=== PATIENT | female | born 1995 | race Hispanic/Latino ===

== ENCOUNTER 2018-03-02 16:32 | Emergency (ER) | payer OTHER ==
--- NOTE | 2018-03-02 17:46 | ER ---
Nurse's Notes [facility] Name: Samira Boston Age: 22 yrs Sex: Female : 1995 Arrival Date: 03/02/2018 Time: 16:33 Bed 20 Private MD: Diagnosis: Post LEEP pain, fatigue, malaise Presentation: 03/02 16:46 Presenting complaint: Patient states: LEEP 13 days ago. Reports clear malodorous aj discharge with intermittent bleeding. Seen in Kadiyala's office today and told she has an infection. ABX called in, patient has not picked up RX yet. Transition of care: patient was not received from another setting of care. Onset of symptoms was February 19, 2018. Care prior to arrival: None. 16:46 Method Of Arrival: Ambulatory aj 16:46 Acuity: SHANELL 3 aj Triage Assessment: 16:49 General: Appears in no apparent distress. comfortable, Behavior is calm, cooperative, aj appropriate for age. Pain: Complains of pain in pelvis Pain currently is 9 out of 10 on a pain scale. Neuro: Level of Consciousness is awake, alert, obeys commands, Oriented to person, place, time, situation. Respiratory: Airway is patent Respiratory effort is even, unlabored, Respiratory pattern is regular, symmetrical. : Reports discharge, bloody, malodorous. Derm: Skin is intact, is healthy with good turgor, Skin is pink, warm \T\ dry. normal. 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 - Social history:: Smoking status: Patient/guardian denies using tobacco. Screenin:31 Abuse screen: Denies threats or abuse. Denies injuries from another. Nutritional ss screening: No deficits noted. Tuberculosis screening: Never had TB. Fall Risk None identified. Assessment: 17:31 General: Appears in no apparent distress. comfortable, Behavior is calm, cooperative, ss Denies fever, feeling ill, fatigue, chills. Pain: Complains of pain in pelvis Pain currently is 9 out of 10 on a pain scale. Quality of pain is described as aching, tender, Is continuous. Neuro: Level of Consciousness is awake, alert, obeys commands, Oriented to person, place, time, situation. Cardiovascular: Capillary refill < 3 seconds is brisk in bilateral fingers. Respiratory: Airway is patent Respiratory effort is even, unlabored, Respiratory pattern is regular, symmetrical. GI: Patient currently denies diarrhea, nausea, vomiting. : Reports discharge, from vagina that is bloody, malodorous. EENT: Nares are clear. Derm: Skin is intact, is healthy with good turgor, Skin is dry, Skin is pink, warm \T\ dry. normal. Musculoskeletal: Circulation, motion, and sensation intact. Range of motion: intact in all extremities. Vital Signs: 16:49 BP 118 / 91; Pulse 83; Resp 17; Temp 98.2; Pulse Ox 100% on R/A; Weight 52.16 kg; aj Height 5 ft. 2 in. (157.48 cm); Pain 9/10; 16:49 Body Mass Index 21.03 (52.16 kg, 157.48 cm) aj ED Course: 16:33 Patient arrived in ED. as 16:48 Triage completed. aj 16:49 Arm band placed on right wrist. Patient placed in an exam room. aj 17:00 [facility]endiz [facility]C [facility]. snw 17:00 Cesar Andres MD is Attending Physician. snw 17:15 Ena Britt, KJ is Primary Nurse. ss 17:31 Patient has correct armband on for positive identification. Bed in low position. Call ss light in reach. 17:44 Urine collected: clean catch specimen, clear. dh3 17:45 Deanna Reyes MD is Referral Physician. snw 18:18 No provider procedures requiring assistance completed. Patient did not have IV access ss during this emergency room visit. Administered Medications: 17:52 Drug: Zofran 4 mg Route: PO; ss 18:15 Follow up: Response: No adverse reaction ss 17:55 Drug: TORadol 60 mg Route: IM; Site: left gluteus; ss 18:15 Follow up: Response: No adverse reaction ss 17:55 Drug: [place] 5 mg-325 mg 1 tabs Route: PO; ss 18:15 Follow up: Response: No adverse reaction; Medication administered at discharge. ss 17:55 Drug: Flagyl 500 mg Route: PO; ss 18:15 Follow up: Response: No adverse reaction Outcome: 17:46 Discharge ordered by . ashok 18:18 Discharged to home ambulatory, with significant other. ss 18:18 Condition: good 18:18 Discharge instructions given to patient, family, Instructed on discharge instructions, follow up and referral plans. medication usage, Demonstrated understanding of instructions, follow-up care, medications, Prescriptions given X 3. 18:19 Patient left the ED. ss Signatures: Sherry Del Valle, RN RN Valery Pathak, ELECTRICAL CALIBRATOR-C ELECTRICAL CALIBRATOR-Csnw Ivy Zelaya Shelby, KJ RN Kristina Mathews formerly [facility]
--- NOTE | 2018-03-02 17:46 | EDPHYS ---
Physician Documentation [facility] Name: Samira Boston Age: 22 yrs Sex: Female : 1995 Arrival Date: 03/02/2018 Time: 16:33 Bed 20 Private MD: ED Physician Cesar Andres HPI: 03/02 17:30 This 22 yrs old Female presents to ER via Ambulatory with complaints of Pelvic snw Pain. 17:30 The patient presents with pelvic pain, s/p LEEP procedure 13 days ago. Onset: The snw symptoms/episode began/occurred gradually, and became worse. Modifying factors: The symptoms are alleviated by nothing, the symptoms are aggravated by movement, pressure. Associated signs and symptoms: Pertinent positives: cramping, vaginal discharge, cear, foul odor. Severity of symptoms: At their worst the symptoms were moderate, severe. The patient has not experienced similar symptoms in the past. The patient has been recently seen by a physician: the patient's primary care provider, with similar presenting complaints, was given a prescription for antibiotics, and was referred to a specialist. 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 - Social history:: Smoking status: Patient/guardian denies using tobacco. ROS: 17:29 Constitutional: Negative for fever, chills, and weight loss, + "hot flashes, nausea, snw headache, feeling weak in the legs" Eyes: Negative for injury, pain, redness, and discharge, ENT: Negative for injury, pain, and discharge, Neck: Negative for injury, pain, and swelling, Cardiovascular: Negative for chest pain, palpitations, and edema, Respiratory: Negative for shortness of breath, cough, wheezing, and pleuritic chest pain, Abdomen/GI: Negative for abdominal pain, nausea, vomiting, diarrhea, and constipation, Back: Negative for injury and pain, MS/Extremity: Negative for injury and deformity, Skin: Negative for injury, rash, and discoloration, Neuro: Negative for headache, weakness, numbness, tingling, and seizure. Exam: 17:27 Constitutional: This is a well developed, well nourished patient who is awake, alert, snw and in no acute distress. Head/Face: Normocephalic, atraumatic. Eyes: Pupils equal round and reactive to light, extra-ocular motions intact. Lids and lashes normal. Conjunctiva and sclera are non-icteric and not injected. Cornea within normal limits. Periorbital areas with no swelling, redness, or edema. ENT: Nares patent. No nasal discharge, no septal abnormalities noted. Tympanic membranes are normal and external auditory canals are clear. Oropharynx with no redness, swelling, or masses, exudates, or evidence of obstruction, uvula midline. Mucous membranes moist. Neck: Trachea midline, no thyromegaly or masses palpated, and no cervical lymphadenopathy. Supple, full range of motion without nuchal rigidity, or vertebral point tenderness. No Meningismus. Chest/axilla: Normal chest wall appearance and motion. Nontender with no deformity. No lesions are appreciated. Cardiovascular: Regular rate and rhythm with a normal S1 and S2. No gallops, murmurs, or rubs. Normal PMI, no JVD. No pulse deficits. Respiratory: Lungs have equal breath sounds bilaterally, clear to auscultation and percussion. No rales, rhonchi or wheezes noted. No increased work of breathing, no retractions or nasal flaring. Abdomen/GI: Soft, mild tenderness to suprapubic area, with normal bowel sounds. No distension or tympany. No guarding or rebound. No evidence of tenderness throughout. Back: No spinal tenderness. No costovertebral tenderness. Full range of motion. Skin: Warm, dry with normal turgor. Normal color with no rashes, no lesions, and no evidence of cellulitis. MS/ Extremity: Pulses equal, no cyanosis. Neurovascular intact. Full, normal range of motion. Neuro: Awake and alert, GCS 15, oriented to person, place, time, and situation. Cranial nerves II-XII grossly intact. Motor strength 5/5 in all extremities. Sensory grossly intact. Cerebellar exam normal. Normal gait. Vital Signs: 16:49 BP 118 / 91; Pulse 83; Resp 17; Temp 98.2; Pulse Ox 100% on R/A; Weight 52.16 kg; aj Height 5 ft. 2 in. (157.48 cm); Pain 9/10; 16:49 Body Mass Index 21.03 (52.16 kg, 157.48 cm) aj MDM: 17:07 Patient medically screened. snw 18:12 Data reviewed: vital signs, nurses notes. Data interpreted: Pulse oximetry: on room air snw is 100 %. Counseling: I had a detailed discussion with the patient and/or guardian regarding: the historical points, exam findings, and any diagnostic results supporting the discharge/admit diagnosis, the presence of at least one elevated blood pressure reading (>120/80) during this emergency department visit, the need for outpatient follow up, for definitive care, to return to the emergency department if symptoms worsen or persist or if there are any questions or concerns that arise at home. Special discussion: Based on the history and exam findings, there is no indication for further emergent testing or inpatient evaluation. I discussed with the patient/guardian the need to see the OB Gyne specialist for further evaluation of the symptoms. 03/02 17:01 Order name: Urine Culture snw 03/02 17:01 Order name: Urine Microscopic Only snw 03/02 17:01 Order name: Urine Culture EDMS 03/02 17:01 Order name: Urine Microscopic Only; Complete Time: 18:12 EDMS 03/02 17:45 Order name: Urine Dipstick--Ancillary (enter results); Complete Time: 17:55 mw2 03/02 17:45 Order name: Urine --Ancillary (enter results); Complete Time: 17:55 mw2 03/02 17:01 Order name: Urine Dipstick-Ancillary (obtain specimen); Complete Time: 17:45 snw Administered Medications: 17:52 Drug: Zofran 4 mg Route: PO; ss 18:15 Follow up: Response: No adverse reaction ss 17:55 Drug: TORadol 60 mg Route: IM; Site: left gluteus; ss 18:15 Follow up: Response: No adverse reaction ss 17:55 Drug: [place] 5 mg-325 mg 1 tabs Route: PO; ss 18:15 Follow up: Response: No adverse reaction; Medication administered at discharge. ss 17:55 Drug: Flagyl 500 mg Route: PO; ss 18:15 Follow up: Response: No adverse reaction ss Disposition: 03/03 08:11 Co-signature as Attending Physician, Cesar Andres MD I agree with the assessment and wa plan of care. Disposition: 03/02/18 17:46 Discharged to Home. Impression: Post LEEP pain, fatigue, malaise. - Condition is Stable. - Discharge Instructions: Cervicitis, [id number], Endocervical Curettage, Care After. - Prescriptions for Flagyl 500 mg Oral Tablet - take 1 tablet by ORAL route every 12 hours for 7 days; 14 tablet. Diclofenac Sodium 75 mg Oral Tablet Sustained Release - take 1 tablet by ORAL route 2 times per day; 30 tablet. - Medication Reconciliation Form, Thank You Letter, Antibiotic Education, Prescription Opioid Use form. - Family Work Release (03/02/18 20:15). em1 - Follow up: Deanna Reyse MD; When: Tomorrow; Reason: Recheck today's complaints, Continuance of care, Re-evaluation by your physician. Signatures: Dispatcher [employer] Sherry Garcia RN Valery Benavides, APPLICATIONS SALES REPRESENTATIVE-C APPLICATIONS SALES REPRESENTATIVE-Ziw Ena Britt RN RN ss App[place], William, MD MD wa Martinez, Eric em1
[2018-03-02] MEDS ORDERED: metroNIDAZOLE 500 MG TABLET ONE (17:47)
[2018-03-02] MEDS ORDERED: ONDANSETRON 4 MG (ODT) TAB ONE (17:48)
[2018-03-02] MEDS ORDERED: KETOROLAC 30 MG/ML INJ ONE (17:48)
[2018-03-02] MEDS ORDERED: HYDROCODONE/APAP 5/325 MG TAB ONE (17:48)
[2018-03-02 17:50] LABS: Urine Blood 3+ (NEG); Urine Glucose NEGATIVE (NEG); Urine Protein NEGATIVE (NEG)
[2018-03-02 18:10] LABS: Urine Bacteria 20-50 /HPF (<20); Urine Culture Reflex Order NOT NEEDED
== END 2018-03-02 18:19 | disposition home or self-care (01) ==
LOC: ER 16:32
DX: R53.83 Other fatigue (principal); R53.81 Other malaise
CPT/HCPCS: 81003; 81015; 81025; 87086; 87088; 96372; 99283

== ENCOUNTER 2018-08-17 16:58 | Emergency (ER) | payer OTHER ==
[2018-08-17] MEDS ORDERED: ONDANSETRON 4 MG/2 ML VIAL ONE (17:38)
[2018-08-17] MEDS ORDERED: MORPHINE 4 MG/ML SYR ONE (17:38)
[2018-08-17 17:52] LABS: Absolute Lymphocytes (CBC) 2.4 K/uL (0.7-4.9); Absolute Monocytes 0.4 K/uL (0.1-1.3); Absolute Neutrophil 5.5 K/uL (1.8-8.0); Basophils % 0.6 % (0-1.3); Eosinophils % 2.7 % (0-4.4); Hematocrit 37.7 % (36.0-45.0); Lymphocytes % 28.1 % (15.3-44.8); MCH 30.8 pg (27.0-35.0); MCV 92.1 fL (80-100); MPV 9.1 fL (7.6-11.3); Monocytes % 5.1 % (3.3-12.3)
[2018-08-17 17:55] LABS: Urine Blood NEGATIVE (NEG); Urine Glucose NEGATIVE (NEG); Urine Protein TRACE (NEG); Urine Specific Gravity 1.015 (1.005-1.030); Urine pH 8.5 (5.0-7.0)
[2018-08-17 18:10] LABS: ALT/SGPT 22 U/L (12-78); AST/SGOT 16 U/L (15-37); Albumin 3.6 g/dL (3.4-5.0); Alkaline Phosphatase 67 U/L (45-117); BUN Blood Urea Nitrogen 20 mg/dL (7-18); Bicarbonate 29 mmol/L (21-32); Bilirubin Direct < 0.1 mg/dL (0-0.2); Bilirubin Total 0.2 mg/dL (0.2-1.0); Glucose Level 90 mg/dL (74-106); Lipase 158 U/L (73-393); Potassium 3.9 mmol/L (3.5-5.1); Protein, Total 7.1 g/dL (6.4-8.2); Sodium Level 141 mmol/L (136-145)
--- NOTE | 2018-08-17 18:38 | EDPHYS ---
Physician Documentation [facility] Name: Samira Boston Age: 23 yrs Sex: Female : 1995 Arrival Date: 08/17/2018 Time: 16:59 Bed 16 Private MD: None, None ED Physician Oh Colindres HPI: 08/17 17:15 This 23 yrs old Female presents to ER via Ambulatory with complaints of cp Abdominal Pain. 17:15 The patient presents with abdominal pain right lower quadrant. Onset: The cp symptoms/episode began/occurred 3 day(s) ago. 17:15 Associated signs and symptoms: Pertinent positives: vaginal discharge, Pertinent cp negatives: nausea, vomiting, and diarrhea, constipation, fever, hematuria. 17:15 Patient reports history of right ovarian cyst and reports pain is similar to when cp diagnosed with cyst. Patient reports pain with intercourse. 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 - Social history:: Smoking status: Patient/guardian denies using tobacco. - Ebola Screening: : Patient denies travel to an Ebola-affected area in the 21 days before illness onset. ROS: 17:25 Constitutional: Negative for body aches, chills, fever, poor PO intake. cp 17:25 Eyes: Negative for injury, pain, redness, and discharge. cp 17:25 ENT: Negative for drainage from ear(s), ear pain, sore throat, difficulty swallowing, difficulty handling secretions. 17:25 Cardiovascular: Negative for chest pain, edema, palpitations. 17:25 Respiratory: Negative for cough, shortness of breath, wheezing. 17:25 Abdomen/GI: Positive for abdominal pain, Negative for nausea, vomiting, and diarrhea, constipation, anorexia, dysphagia, black/tarry stool, rectal bleeding. 17:25 Back: Negative for injury or acute deformity, pain at rest, pain with movement. 17:25 : Negative for urinary symptoms, vaginal bleeding, vaginal discharge. 17:25 Skin: Negative for cellulitis, rash. 17:25 Neuro: Negative for altered mental status, headache, weakness. 17:25 All other systems are negative. Exam: 17:27 Head/Face: Normocephalic, atraumatic. cp 17:27 Constitutional: The patient appears in no acute distress, alert, awake, non-toxic, well developed, well nourished. 17:27 Eyes: Periorbital structures: appear normal, Conjunctiva: normal, no exudate, no injection, Sclera: no appreciated abnormality, Lids and lashes: appear normal, bilaterally. 17:27 ENT: External ear(s): are unremarkable, Nose: is normal, Mouth: Lips: moist, Oral mucosa: pink and intact, moist, Posterior pharynx: is normal, airway is patent, no erythema, no exudate. 17:27 Neck: ROM/movement: is normal, is supple, without pain, no range of motions limitations, no nuchal rigidity. 17:27 Chest/axilla: Inspection: normal, Palpation: is normal, no crepitus, no tenderness. 17:27 Cardiovascular: Rate: normal, Rhythm: regular. 17:27 Respiratory: the patient does not display signs of respiratory distress, Respirations: normal, no use of accessory muscles, no retractions, no splinting, no tachypnea, labored breathing, is not present, Breath sounds: are clear throughout, no decreased breath sounds, no stridor, no wheezing. 17:27 Abdomen/GI: Inspection: abdomen appears normal, Bowel sounds: active, all quadrants, Palpation: soft, in all quadrants, moderate abdominal tenderness, in the right lower quadrant and right adnexa, rebound tenderness, is not appreciated, involuntary guarding, is not appreciated. 17:27 Back: CVA tenderness, is absent. 17:27 Skin: cellulitis, is not appreciated, no rash present. 18:25 : Pelvic Exam: External exam: is normal, Speculum exam: mild bleeding, cervicitis cp present, os that is closed, bimanual exam reveals cervical motion tenderness, uterine tenderness, right adnexal tenderness, no adnexal mass on right, no adnexal mass on left, discharge, bloody, the nurse was present for the exam, Sexual behavior: the patient is sexually active, and reports a single partner. Vital Signs: 17:02 BP 117 / 76; Pulse 67; Resp 16; Temp 98.1; Pulse Ox 100% on R/A; Weight 58.97 kg (R); aj1 Height 5 ft. 2 in. (157.48 cm) (R); 17:30 BP 124 / 78; Pulse 68; Resp 16; Pulse Ox 100% on R/A; kr2 19:03 BP 118 / 80; Pulse 70; Resp 16; Pulse Ox 99% on R/A; kr2 17:02 Body Mass Index 23.78 (58.97 kg, 157.48 cm) aj1 MDM: 17:05 Patient medically screened. cp 17:30 Differential diagnosis: appendicitis, Dysmenorrhea, Ectopic , Endometriosis, cp Ovarian Torsion, Pelvic Inflammatory Disease, Pyelonephritis, Ureterolithiasis, urinary tract infection. 18:15 Refusal of service: The patient/guardian displays adequate decision making capability cp and despite a detailed discussion of alternatives, benefits, risks, and consequences refuses: CT Scan. 18:35 Data reviewed: vital signs, nurses notes, lab test result(s), radiologic studies, cp ultrasound. 18:35 Counseling: I had a detailed discussion with the patient and/or guardian regarding: the cp historical points, exam findings, and any diagnostic results supporting the discharge/admit diagnosis, lab results, radiology results, the need for outpatient follow up, an OB/Gyne specialist, to return to the emergency department if symptoms worsen or persist or if there are any questions or concerns that arise at home. Response to treatment: the patient's symptoms have mildly improved after treatment, VSS. Pain improved. Will discharge to home for continued monitoring, and as a result, I will discharge patient. Special discussion: Based on the patient's Hx, exam, and Dx evaluation, there is no indication for emergent surgery or inpatient Tx. It is understood by the patient/guardian that if the Sx's persist or worsen they need to return immediately for re-evaluation. 08/17 17:17 Order name: Basic Metabolic Panel; Complete Time: 18:35 cp 08/17 18:35 Interpretation: Normal except: CL 109; BUN 20; GFR 87. cp 08/17 17:17 Order name: CBC with Diff; Complete Time: 18:10 cp 08/17 17:17 Order name: Creatinine for Radiology; Complete Time: 18:10 cp 08/17 17:17 Order name: Hepatic Function; Complete Time: 18:35 cp 08/17 17:17 Order name: Lipase; Complete Time: 18:35 cp 08/17 17:49 Order name: Urine Dipstick--Ancillary (enter results); Complete Time: 18:10 eb 08/17 17:39 Order name: Transvaginal Study Probe EDMS 08/17 17:49 Order name: Urine --Ancillary (enter results); Complete Time: 18:10 eb 08/17 18:11 Order name: GC (GONORR/CHLAMYDIA) Probe cp 08/17 18:11 Order name: Wet Prep cp 08/17 17:05 Order name: Urine Dipstick-Ancillary (obtain specimen); Complete Time: 17:42 cp 08/17 17:05 Order name: Urine Test (obtain specimen); Complete Time: 17:42 cp 08/17 17:17 Order name: IV Saline Lock; Complete Time: 17:42 cp 08/17 17:17 Order name: Labs collected and sent; Complete Time: 17:42 cp 08/17 18:11 Order name: Pelvic Exam Setup; Complete Time: 18:17 cp Administered Medications: 17:36 Drug: Zofran 4 mg Route: IVP; Site: left antecubital; kr2 18:30 Follow up: Response: No adverse reaction; Pain is decreased kr2 17:38 Drug: morphine 2 mg Route: IVP; Site: left antecubital; kr2 18:00 Follow up: Response: No adverse reaction; Pain is decreased kr2 18:46 Drug: Zithromax 1 grams Route: PO; kr2 19:04 Follow up: Response: Medication administered at discharge. kr2 18:46 Drug: Hydrocodone-Acetaminophen (7.5 mg-325 mg) 1 tabs Route: PO; kr2 19:05 Follow up: Response: Medication administered at discharge. kr2 18:55 Drug: Rocephin - (cefTRIAXone) 1 grams Route: IVPB; Infused Over: 30 mins; Site: left kr2 antecubital; 19:04 Follow up: Response: No adverse reaction; IV Status: Completed infusion kr2 Disposition: 08/18 07:35 Co-signature as Attending Physician, Oh Colindres MD. rn Disposition: 08/17/18 18:37 Discharged to Home. Impression: Abdominal and pelvic pain, Female pelvic inflammatory disorders in diseases classified elsewhere. - Condition is Stable. - Discharge Instructions: Pelvic Inflammatory Disease, Pelvic Pain, Female. - Prescriptions for Tylenol- Codeine #3 300-30 mg Oral Tablet - take 2 tablets by ORAL route every 6 hours As needed; 20 tablet. Doxycycline Hyclate 100 mg Oral Tablet - take 1 tablet by ORAL route every 12 hours; 20 tablet. Metronidazole 500 mg Oral Tablet - take 1 tablet by ORAL route every 8 hours; 30 tablet. - Medication Reconciliation Form, Thank You Letter, Antibiotic Education, Prescription Opioid Use form. - Follow up: Scar Osman MD; When: 2 - 3 days; Reason: Recheck today's complaints. - Problem is new. - Symptoms have improved. Signatures: Dispatcher [employer] [facility] Gisela Burciaga RN RN aj1 Oh Colindres MD MD rn Page, Corey, PA PA cp Carlene Olivas RN RN kr2 Corrections: (The following items were deleted from the chart) 08/17 17:39 17:18 Pelvis Complete+[id number].[id number] ordered. [facility] 18:42 18:37 08/17/2018 18:37 Discharged to Home. Impression: Abdominal and pelvic pain. cp Condition is Stable. Forms are Medication Reconciliation Form, Thank You Letter, Antibiotic Education, Prescription Opioid Use. Follow up: Scar Osman; When: 2 - 3 days; Reason: Recheck today's complaints. Problem is new. Symptoms have improved. cp 19:05 18:42 08/17/2018 18:37 Discharged to Home. Impression: Abdominal and pelvic pain; kr2 Female pelvic inflammatory disorders in diseases classified elsewhere. Condition is Stable. Discharge Instructions: Pelvic Pain, Female, Pelvic Inflammatory Disease. Prescriptions for Tylenol-Codeine #3 300-30 mg Oral Tablet - take 2 tablets by ORAL route every 6 hours As needed; 20 tablet, Doxycycline Hyclate 100 mg Oral Tablet - take 1 tablet by ORAL route every 12 hours; 20 tablet, Metronidazole 500 mg Oral Tablet - take 1 tablet by ORAL route every 8 hours; 30 tablet. and Forms are Medication Reconciliation Form, Thank You Letter, Antibiotic Education, Prescription Opioid Use. Follow up: Scar Osman; When: 2 - 3 days; Reason: Recheck today's complaints. Problem is new. Symptoms have improved. cp
--- NOTE | 2018-08-17 18:38 | ER ---
Nurse's Notes [facility] Name: Samira Boston Age: 23 yrs Sex: Female : 1995 Arrival Date: 08/17/2018 Time: 16:59 Bed 16 Private MD: None, None Diagnosis: Abdominal and pelvic pain;Female pelvic inflammatory disorders in diseases classified elsewhere Presentation: 08/17 16:59 Presenting complaint: Patient states: Lower abdominal pain, worse on the right side for aj1 the last 3 days. Patient states that she has a cyst on the right side and she thinks that's her problem. Denies N/V/D. Denies fever. Transition of care: patient was not received from another setting of care. Onset of symptoms was July 2018. Risk Assessment: Do you want to hurt yourself or someone else? Patient reports no desire to harm self or others. Initial Sepsis Screen: Does the patient meet any 2 criteria? No. Patient's initial sepsis screen is negative. Does the patient have a suspected source of infection? Yes: Acute abdominal pain. Care prior to arrival: None. 16:59 Method Of Arrival: Ambulatory [facility] 16:59 Acuity: SHANELL 3 aj1 Triage Assessment: 17:02 General: Appears in no apparent distress. comfortable, Behavior is calm, cooperative, aj1 appropriate for age. Pain: Complains of pain in right lower quadrant and left lower quadrant Pain currently is 9 out of 10 on a pain scale. Neuro: Level of Consciousness is awake, alert, obeys commands. Cardiovascular: Patient's skin is warm and dry. Respiratory: Airway is patent Respiratory effort is even, unlabored, Respiratory pattern is regular, symmetrical. GI: Reports lower abdominal pain. 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 - Social history:: Smoking status: Patient/guardian denies using tobacco. - Ebola Screening: : Patient denies travel to an Ebola-affected area in the 21 days before illness onset. Screenin:43 Abuse screen: Denies threats or abuse. Denies injuries from another. Nutritional kr2 screening: No deficits noted. Tuberculosis screening: No symptoms or risk factors identified. Fall Risk None identified. Assessment: 17:43 General: Appears in no apparent distress. uncomfortable, slender, well groomed, well kr2 developed, well nourished, Behavior is calm, cooperative, appropriate for age. Pain: Complains of pain in right lower quadrant Pain radiates to left lower quadrant Pain currently is 8 out of 10 on a pain scale. Quality of pain is described as aching, tender, Is continuous, Alleviated by medications, rest, Aggravated by increased activity. Neuro: Level of Consciousness is awake, alert, obeys commands, Oriented to person, place, time, situation. Cardiovascular: Capillary refill < 3 seconds in bilateral fingers Patient's skin is warm and dry. Respiratory: Airway is patent Respiratory effort is even, unlabored, Respiratory pattern is regular, symmetrical. GI: GI: Bowel sounds present X 4 quads. Abd is soft X 4 quads Abdomen is tender to palpation in suprapubic area, right lower quadrant and left lower quadrant Reports lower abdominal pain, nausea. : Urine is clear, Reports right ovarian cyst. EENT: Oral mucosa is moist. Derm: Skin is intact, is healthy with good turgor, Skin is pink, warm \T\ dry. Musculoskeletal: Circulation, motion, and sensation intact. 18:22 Reassessment: Patient appears in no apparent distress at this time. Patient and/or kr2 family updated on plan of care and expected duration. Pain level reassessed. Patient is alert, oriented x 3, equal unlabored respirations, skin warm/dry/pink. Patient complains of increased pain after ultrasound. Provider notified, GALE Velazco notified. 18:55 Reassessment: Patient appears in no apparent distress at this time. Patient and/or kr2 family updated on plan of care and expected duration. Pain level reassessed. Patient is alert, oriented x 3, equal unlabored respirations, skin warm/dry/pink. Medicated as ordered with antibiotics and for pain. Vital Signs: 17:02 BP 117 / 76; Pulse 67; Resp 16; Temp 98.1; Pulse Ox 100% on R/A; Weight 58.97 kg (R); aj1 Height 5 ft. 2 in. (157.48 cm) (R); 17:30 BP 124 / 78; Pulse 68; Resp 16; Pulse Ox 100% on R/A; kr2 19:03 BP 118 / 80; Pulse 70; Resp 16; Pulse Ox 99% on R/A; kr2 17:02 Body Mass Index 23.78 (58.97 kg, 157.48 cm) aj1 ED Course: 16:59 Patient arrived in ED. sb2 16:59 None, None is Private Physician. sb2 17:02 Triage completed. aj1 17:02 Arm band placed on Patient placed in an exam room. aj1 17:05 Sb Diggs PA is PHCP. cp 17:05 Oh Colindres MD is Attending Physician. cp 17:22 Carlene Olivas, KJ is Primary Nurse. kr2 17:25 Patient has correct armband on for positive identification. Bed in low position. Call kr2 light in reach. Side rails up X2. Pulse ox on. NIBP on. Door closed. Warm blanket given. Head of bed elevated. 17:28 Inserted saline lock: 20 gauge in left antecubital area, using aseptic technique. Blood kr2 collected. 17:38 Urine collected: clean catch specimen, clear. kr2 17:53 Transvaginal Study Probe In Process Unspecified. EDMS 18:13 Radiology exam delayed due to PT REFUSED CT. kc3 18:35 Assist provider with pelvic exam: Set up pelvic tray. Performed by Sb BEASLEY kr2 Specimens sent to lab. Patient tolerated poorly. 18:37 Scar Osman MD is Referral Physician. cp 19:05 IV discontinued, intact, bleeding controlled, No redness/swelling at site. Pressure kr2 dressing applied. Administered Medications: 17:36 Drug: Zofran 4 mg Route: IVP; Site: left antecubital; kr2 18:30 Follow up: Response: No adverse reaction; Pain is decreased kr2 17:38 Drug: morphine 2 mg Route: IVP; Site: left antecubital; kr2 18:00 Follow up: Response: No adverse reaction; Pain is decreased kr2 18:46 Drug: Zithromax 1 grams Route: PO; kr2 19:04 Follow up: Response: Medication administered at discharge. kr2 18:46 Drug: Hydrocodone-Acetaminophen (7.5 mg-325 mg) 1 tabs Route: PO; kr2 19:05 Follow up: Response: Medication administered at discharge. kr2 18:55 Drug: Rocephin - (cefTRIAXone) 1 grams Route: IVPB; Infused Over: 30 mins; Site: left kr2 antecubital; 19:04 Follow up: Response: No adverse reaction; IV Status: Completed infusion kr2 Outcome: 18:37 Discharge ordered by . zoie 19:02 Discharged to home ambulatory, with family. kr2 19:02 Condition: good 19:02 Discharge instructions given to patient, Instructed on discharge instructions, follow up and referral plans. medication usage, Demonstrated understanding of instructions, follow-up care, medications, Prescriptions given X 3. 19:05 Patient left the ED. kr2 Signatures: Dispatcher [employer] EDMS Gisela Burciaga RN RN aj1 Sb Diggs PA PA cp Reaves, Karey, RN RN kr2 Dianne Fitzpatrick kc3 Lata Campos sb2
[2018-08-17] MEDS ORDERED: AZITHROMYCIN 250 MG TAB ONE (18:45)
[2018-08-17] MEDS ORDERED: HYDROCODONE/APAP 7.5/325 MG TAB ONE (18:46)
[2018-08-17] MEDS ORDERED: CEFTRIAXONE/SWI 1gm 1 GM/10 ML SYR ONE (18:56)
--- NOTE | 2018-08-17 19:32 | RAD REPORT ---
EXAM DESCRIPTION: US - Transvaginal Study Probe - 08/17/2018 5:53 pm CLINICAL HISTORY: Right-sided adnexal pain Preliminary findings provided at the time of the study. COMPARISON: None. TECHNIQUE: Endovaginal sonography was performed. FINDINGS: Endometrium is 2 mm with no endometrial mass, polyp or focal abnormality. No myometrial ma ss. Uterus is 7.3 x 3.6 x 5.6 cm. Both ovaries are identifiable. Doppler evaluation shows a normal stroma blood flow pattern. A few sma ll cysts or follicles present in each ovary 10 mm or less in size. No dominant solid or cystic ovaria n or adnexal finding. No free fluid. IMPRESSION: Pelvic ultrasound shows no significant or suspicious finding.
[2018-08-21 09:21] LABS: C.trachomatis RNA,TMA Not Detected (Not Detected)
== END 2018-08-17 19:05 | disposition home or self-care (01) ==
LOC: ER 16:58
DX: N74 Female pelvic inflammatory disorders in diseases classified elsewhere (principal); Z88.5 Allergy status to narcotic agent
CPT/HCPCS: 36415; 76830; 80048; 80076; 81003; 81025; 83690; 85025; 87210; 87490; 87590; 96374; 96375; 99284; J0696; J2405

== ENCOUNTER 2019-01-07 18:07 | Emergency (ER) | payer OTHER, SELFPAY ==
--- OUTSIDE RECORDS SUMMARY | 2019-01-07 18:09 | XMS REPORT ---
:1995 [facility] Address [address] [place] [address] Care Team Providers Name Role Phone Unavailable Unavailable Unavailable Payers Payer Name Policy Type Policy Number Effective Date Expiration Date Problems This patient has no known problems. Allergies, Adverse Reactions, Alerts Allergy Allergy Status Severity Reaction(s) Onset Inactive Treating Comments Name Type Date Date Clinician ketorolac DA Active U 2018-11 00:00:0 0 Medications This patient has no known medications.
--- NOTE | 2019-01-07 18:32 | ER ---
Nurse's Notes [facility] Name: Samira Boston Age: 23 yrs Sex: Female : 1995 Arrival Date: 01/07/2019 Time: 18:09 Bed 14 Private MD: None, None Diagnosis: Traumatic secondary and recurrent hemorrhage and seroma Presentation: 01/07 18:13 Presenting complaint: Patient states: I had a dental procedure about 3 weeks ago and la1 they put in absorbable sutures, about a week ago I started having pain, fever and not feeling well and today I felt something weird in my mouth it was bleeding. Transition of care: patient was not received from another setting of care. Onset of symptoms was January 07, 2019. Risk Assessment: Do you want to hurt yourself or someone else? Patient reports no desire to harm self or others. Initial Sepsis Screen: Does the patient meet any 2 criteria? No. Patient's initial sepsis screen is negative. Does the patient have a suspected source of infection? No. Patient's initial sepsis screen is negative. Care prior to arrival: None. 18:13 Method Of Arrival: Ambulatory la1 18:13 Acuity: SHANELL 4 la1 Historical: - Allergies: 18:15 Toradol; la1 - PMHx: 18:15 None; la1 - Immunization history:: Adult Immunizations up to date. - Social history:: Smoking status: Patient/guardian denies using tobacco. - Ebola Screening: : No symptoms or risks identified at this time. Screenin:38 Abuse screen: Denies threats or abuse. Denies injuries from another. Nutritional jl7 screening: No deficits noted. Tuberculosis screening: No symptoms or risk factors identified. Fall Risk None identified. Assessment: 18:38 General: Appears in no apparent distress. uncomfortable, Behavior is calm, cooperative, jl7 appropriate for age. Pain: Complains of pain in mouth. Neuro: Level of Consciousness is awake, alert, obeys commands, Oriented to person, place, time, situation. Cardiovascular: Patient's skin is warm and dry. Respiratory: Airway is patent Respiratory effort is even, unlabored, Respiratory pattern is regular, symmetrical. Derm: Skin is pink, warm \T\ dry. Vital Signs: 18:15 BP 110 / 64; Pulse 65; Resp 15; Temp 97.2; Pulse Ox 98% on R/A; Weight 56.7 kg; Height la1 5 ft. 2 in. (157.48 cm); 18:15 Body Mass Index 22.86 (56.70 kg, 157.48 cm) la1 ED Course: 18:09 Patient arrived in ED. mr 18:09 None, None is Private Physician. mr 18:14 Triage completed. la1 18:15 Arm band placed on left wrist. la1 18:18 Marciano Lester PA is PHCP. jr8 18:18 El Polo MD is Attending Physician. jr8 18:26 Porfirio Titus, KJ is Primary Nurse. jl7 18:38 Patient has correct armband on for positive identification. Bed in low position. Call jl7 light in reach. Side rails up X 1. 18:41 No provider procedures requiring assistance completed. Patient did not have IV access jl7 during this emergency room visit. Administered Medications: No medications were administered Outcome: 18:32 Discharge ordered by . jr8 18:41 Discharged to home ambulatory. jl7 18:41 Condition: stable 18:41 Discharge instructions given to patient, Instructed on discharge instructions, follow up and referral plans. medication usage, Demonstrated understanding of instructions, follow-up care, medications, Prescriptions given X 1. 18:42 Patient left the ED. jl7 Signatures: Savanna Maravilla mr AnastasiacurtisMarciano PA PA jrNoe Barker, RN RN la1 Porfirio Titus RN RN jl7
--- NOTE | 2019-01-07 18:33 | EDPHYS ---
Physician Documentation [facility] Name: Samira Boston Age: 23 yrs Sex: Female : 1995 Arrival Date: 01/07/2019 Time: 18:09 Bed 14 Private MD: None, None ED Physician El Polo HPI: 01/07 18:25 This 23 yrs old Female presents to ER via Ambulatory with complaints of Mouth jr8 Problem. 18:25 The patient presents with pain. Onset: The symptoms/episode began/occurred acutely, jr8 today. Duration: The symptoms are continuous. Modifying factors: The symptoms are alleviated by nothing, the symptoms are aggravated by nothing. Associated signs and symptoms: Pertinent positives: bleeding. Severity of symptoms: At their worst the symptoms were mild, in the emergency department the symptoms are unchanged. The patient has experienced a previous episode. Patient stated that she recently had a vernier placed. Had gone back to roll hand for pain and found to have fluid collection behind tooth. Had incision made to drain it and then stitches placed. Had been fine till today when she had increased pain again followed by spontaneous bleeding from old suture site . Historical: - Allergies: 18:15 Toradol; la1 - PMHx: 18:15 None; la1 - Immunization history:: Adult Immunizations up to date. - Social history:: Smoking status: Patient/guardian denies using tobacco. - Ebola Screening: : No symptoms or risks identified at this time. ROS: 18:25 Eyes: Negative for injury, pain, redness, and discharge, Neck: Negative for injury, jr8 pain, and swelling, Cardiovascular: Negative for chest pain, palpitations, and edema, Respiratory: Negative for shortness of breath, cough, wheezing, and pleuritic chest pain, Abdomen/GI: Negative for abdominal pain, nausea, vomiting, diarrhea, and constipation, Back: Negative for injury and pain, MS/Extremity: Negative for injury and deformity, Skin: Negative for injury, rash, and discoloration, Neuro: Negative for headache, weakness, numbness, tingling, and seizure. 18:25 ENT: Positive for dental pain, Gum pain Exam: 18:25 Eyes: Pupils equal round and reactive to light, extra-ocular motions intact. Lids and jr8 lashes normal. Conjunctiva and sclera are non-icteric and not injected. Cornea within normal limits. Periorbital areas with no swelling, redness, or edema. Neck: Trachea midline, no thyromegaly or masses palpated, and no cervical lymphadenopathy. Supple, full range of motion without nuchal rigidity, or vertebral point tenderness. No Meningismus. Cardiovascular: Regular rate and rhythm with a normal S1 and S2. No gallops, murmurs, or rubs. Normal PMI, no JVD. No pulse deficits. Respiratory: Lungs have equal breath sounds bilaterally, clear to auscultation and percussion. No rales, rhonchi or wheezes noted. No increased work of breathing, no retractions or nasal flaring. Abdomen/GI: Soft, non-tender, with normal bowel sounds. No distension or tympany. No guarding or rebound. No evidence of tenderness throughout. Back: No spinal tenderness. No costovertebral tenderness. Full range of motion. Skin: Warm, dry with normal turgor. Normal color with no rashes, no lesions, and no evidence of cellulitis. MS/ Extremity: Pulses equal, no cyanosis. Neurovascular intact. Full, normal range of motion. Neuro: Awake and alert, GCS 15, oriented to person, place, time, and situation. Cranial nerves II-XII grossly intact. Motor strength 5/5 in all extremities. Sensory grossly intact. Cerebellar exam normal. Normal gait. 18:25 ENT: Exam is negative for earache, ear discharge, TM abnormalities, nasal discharge, pharyngitis, exudate, Dental exam: Vernier in place at the right incisor. Small healing incision line noted to palate behind tooth. No active bleeding or discharge noted. No swelling or erythema to gum line or palate. Mild pain to palpation . Vital Signs: 18:15 BP 110 / 64; Pulse 65; Resp 15; Temp 97.2; Pulse Ox 98% on R/A; Weight 56.7 kg; Height la1 5 ft. 2 in. (157.48 cm); 18:15 Body Mass Index 22.86 (56.70 kg, 157.48 cm) la1 MDM: 18:18 Patient medically screened. [facility] 18:25 Data reviewed: vital signs, nurses notes, and as a result, I will discharge patient. jr8 Data interpreted: Pulse oximetry: on room air is 98 %. Interpretation: normal. Counseling: I had a detailed discussion with the patient and/or guardian regarding: the historical points, exam findings, and any diagnostic results supporting the discharge/admit diagnosis, the need for outpatient follow up, a dentist, to return to the emergency department if symptoms worsen or persist or if there are any questions or concerns that arise at home. Administered Medications: No medications were administered Disposition: 18:56 Co-signature as Attending Physician, El Polo MD. Disposition: 01/07/19 18:32 Discharged to Home. Impression: Traumatic secondary and recurrent hemorrhage and seroma. - Condition is Stable. - Discharge Instructions: Seroma. - Prescriptions for Tylenol- Codeine #3 300-30 mg Oral Tablet - take 2 tablets by ORAL route every 6 hours As needed; 12 tablet. - Medication Reconciliation Form, Thank You Letter, Antibiotic Education, Prescription Opioid Use form. - Follow up: Private Physician; When: 1 - 2 days; Reason: Recheck today's complaints, Continuance of care, Re-evaluation by your physician. - Problem is new. - Symptoms have improved. Signatures: Marciano Lester PA PA jr8 Noe Rodas, RN RN la1 Porfirio Titus RN RN jl7 El Polo MD MD Corrections: (The following items were deleted from the chart) 18:42 18:32 01/07/2019 18:32 Discharged to Home. Impression: Traumatic secondary and jl7 recurrent hemorrhage and seroma. Condition is Stable. Forms are Medication Reconciliation Form, Thank You Letter, Antibiotic Education, Prescription Opioid Use. Follow up: Private Physician; When: 1 - 2 days; Reason: Recheck today's complaints, Continuance of care, Re-evaluation by your physician. Problem is new. Symptoms have improved. jr8
== END 2019-01-07 18:42 | disposition home or self-care (01) ==
LOC: ER 18:07
DX: T79.2XXA Traumatic secondary and recurrent hemorrhage and seroma, initial encounter (principal); X58.XXXA Exposure to other specified factors, initial encounter; Z88.5 Allergy status to narcotic agent
CPT/HCPCS: 99282

== ENCOUNTER 2020-09-11 14:25 | Emergency (ER) | payer SELFPAY ==
--- OUTSIDE RECORDS SUMMARY | 2020-09-11 16:35 | XMS REPORT | Continuity of Care Document ---
:1995 Author Organization [facility] t Address [address] [place] [address] Care Team Providers Name Role Phone Asked, Pcp Primary Care Physician Unavailable Tia Dasilva Attending Clinician Doctor Unassigned, Name Attending Clinician Unavailable Payers Payer Name Policy Type Policy Number Effective Date Expiration Date S ource Problems This patient has no known problems. Allergies, Adverse Reactions, Alerts Allergy Allergy Status Severity Reaction(s) Onset Inactive Treating Comm ents Source Name Type Date Date Clinician Ibuprofe Propensi Active Rash 2018-11 [place] to 0-12 [facility] adverse 00:00: st reaction 00 s to drug Ketorola Propensi Active Rash 2018-11 [place] to 0-12 Method[facility] adverse 00:00: st reaction 00 s to drug ketorola DA Active U [facility] 12-11 [place] 00:00: [address] Social History Social Habit Start Date Stop Date Quantity Comments Source Sex Assigned At [facility] ethodist Tobacco use and 2019-09-01 2019-09-01 Never used [facility]ist exposure 00:00:00 00:00:00 Alcohol intake 2019-09-01 2019-09-01 Ex-drinker You [facility] 00:00:00 00:00:00 (finding) Medications This patient has no known medications. Procedures This patient has no known procedures. Plan of Care Planned Activity Planned Date Details Comments Source Future Scheduled 2020-06-21 INFLUENZA VACCINE [place] [facility] 00:00:00 [code = INFLUENZA VACCINE] Future Scheduled 2014 Screening for [facility] 00:00:00 malignant neoplasm of cervix (procedure) [code = 962414150] Encounters Start End Encounter Admission Attending Care Care Encounter Source Date/Time Date/Time Type Type Clinicians Facility Department ID 2020-01-07 2020-01-07 Emergency Elio Patel [facility] [id number] 18:19:31 18:38:00 Tia Peters [id number] [place] [id number] [place] [id number] 2020-01-07 2020-01-07 Orders Doctor YADI [id number] 00:00:00 00:00:00 Only Unassigned, KRISTI [id number] [place] [id number] Results This patient has no known results.
--- OUTSIDE RECORDS SUMMARY | 2020-09-11 16:35 | XMS REPORT | Clinical Summary ---
:1995 Author Organization [facility] Address [address] [place] [address] Care Team Providers Name Role Phone Asked, No Pcp Primary Care Provider Unavailable Allergies Active Allergy Reactions Severity Noted Date Comments Ibuprofen Rash Low 09/01/2019 Ketorolac Rash Low 09/01/2019 Medications No known medications Active Problems Not on file Social History Tobacco Use Types Packs/Day Years Used Date Unknown If Ever Smoked Smokeless Tobacco: Never Used Alcohol Use Drinks/Week oz/Week Comments Not Currently Sex Assigned at Date Recorded Not on file Last Filed Vital Signs Not on file Plan of Treatment Health Maintenance Due Date Last Done Comments CERVICAL CANCER SCREENING 2014 INFLUENZA VACCINE 06/21/2020 Results Not on fileafter 09/11/2019 Advance Directives For more information, please contact: [phone] Type Date Recorded 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
--- NOTE | 2020-09-11 17:21 | RAD REPORT ---
EXAM DESCRIPTION: RAD - Abdomen 1 View (KUB) - 09/11/2020 5:12 pm CLINICAL HISTORY: ABD PAIN Pain COMPARISON: No comparisons FINDINGS: The bowel gas pattern is non-obstructive. No evidence of free air or pneumatosis. No suspi cious calcifications. No significant bony findings. IMPRESSION: Negative examination.
--- NOTE | 2020-09-11 17:32 | ER ---
Nurse's Notes [facility] Name: Samira Boston Age: 25 yrs Sex: Female : 1995 Arrival Date: 09/11/2020 Time: 14:26 Bed 13 Private MD: Diagnosis: Constipation Presentation: 09/11 14:42 Chief complaint: Abdominal pain x 5 days. Seen at [place] 2 days ago for same s/s, told hb she was very constipated, has not had BM since she took Mag Citrate. Coronavirus screen: At this time, the client does not indicate any symptoms associated with coronavirus-19. Ebola Screen: No symptoms or risks identified at this time. Initial Sepsis Screen: Does the patient meet any 2 criteria? No. Patient's initial sepsis screen is negative. Does the patient have a suspected source of infection? No. Patient's initial sepsis screen is negative. Risk Assessment: Do you want to hurt yourself or someone else? Patient reports no desire to harm self or others. Onset of symptoms was September 06, 2020. 14:42 Method Of Arrival: Ambulatory 14:42 Acuity: SHANELL 3 hb Triage Assessment: 16:45 General: Appears Behavior is. ca1 16:45 Pain: Complains of pain in abdomen. 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 - Social history:: Smoking status: Patient denies any tobacco usage or history of. Screenin:45 Abuse screen: Denies threats or abuse. Denies injuries from another. Nutritional ca1 screening: No deficits noted. Tuberculosis screening: No symptoms or risk factors identified. Fall Risk None identified. Assessment: 16:45 General: Appears in no apparent distress. comfortable, Behavior is calm, cooperative, ca1 appropriate for age. Pain: Complains of pain in abdomen Pain does not radiate. Pain currently is 10 out of 10 on a pain scale. Pain began 5 days Is intermittent. Neuro: Level of Consciousness is awake, alert, obeys commands, Oriented to person, place, time, situation. Cardiovascular: Heart tones S1 S2 present Capillary refill < 3 seconds Patient's skin is warm and dry. Respiratory: Airway is patent Respiratory effort is even, unlabored, Respiratory pattern is regular, symmetrical, Breath sounds are clear bilaterally. GI: Abdomen is flat, non-distended, Bowel sounds present X 4 quads. Abd is soft and non tender X 4 quads. : No signs and/or symptoms were reported regarding the genitourinary system. EENT: No signs and/or symptoms were reported regarding the EENT system. Derm: Skin is intact, is healthy with good turgor, Skin is pink, warm \T\ dry. Musculoskeletal: Circulation, motion, and sensation intact. Capillary refill < 3 seconds. 17:00 Reassessment: Pt refused X-ray and blood works. ca1 17:45 Reassessment: Patient appears in no apparent distress at this time. Patient and/or ca1 family updated on plan of care and expected duration. Pain level reassessed. Patient is alert, oriented x 3, equal unlabored respirations, skin warm/dry/pink. Vital Signs: 14:42 BP 137 / 87; Pulse 104; Resp 16; Temp 98.5; Pulse Ox 100% on R/A; Weight 56.7 kg; hb Height 5 ft. 2 in. (157.48 cm); Pain 10/10; 16:45 BP 117 / 81; Pulse 91; Resp 18 S; Pulse Ox 100% on R/A; ca1 17:45 BP 125 / 79; Pulse 98; Resp 18 S; Pulse Ox 100% ; ca1 14:42 Body Mass Index 22.86 (56.70 kg, 157.48 cm) hb ED Course: 14:26 Patient arrived in ED. ag5 14:44 Triage completed. hb 14:44 Arm band placed on. hb 16:28 Malou Bragg FNP-C is [facility]. kb 16:28 Oleg Almaguer MD is Attending Physician. kb 16:28 Char Salcedo, KJ is Primary Nurse. ca1 16:45 Patient has correct armband on for positive identification. Bed in low position. Call ca1 light in reach. Side rails up X 1. Pulse ox on. NIBP on. Warm blanket given. 17:12 Abdomen 1 View (KUB) XRAY In Process Unspecified. EDMS 17:43 No provider procedures requiring assistance completed. Patient did not have IV access ca1 during this emergency room visit. Administered Medications: 21:33 CANCELLED (Patient Refused): NS 0.9% 1000 ml IV at 1000 ml once ca1 21:33 Not Given (Pt left before signing discharge papers): Bentyl 20 mg PO once ca1 Outcome: 17:31 Discharge ordered by MD. brunner 17:43 Discharged to home ambulatory. ca1 17:43 Condition: stable 17:43 Discharge instructions given to PT left before signing discharge papers 17:45 Patient left the ED. ca1 Signatures: Dispatcher [employer] EDMS Malou Bragg, SUPERVISOR TYPESETTING-C SUPERVISOR TYPESETTING-Reyna Munoz RN RN Char Salcedo RN RN ca1 Fredi Urban ag5 Corrections: (The following items were deleted from the chart) 21:36 16:45 Pain: Complains of pain in abdomen ca1 ca1 21:38 21:37 General: Appears Behavior is ca1 ca1
--- NOTE | 2020-09-11 17:32 | EDPHYS ---
Physician Documentation [facility] Name: Samira Boston Age: 25 yrs Sex: Female : 1995 Arrival Date: 09/11/2020 Time: 14:26 Bed 13 Private MD: ED Physician Oleg Almaguer HPI: 09/11 17:45 This 25 yrs old Female presents to ER via Ambulatory with complaints of kb Abdominal Pain. 17:45 The patient presents with abdominal pain that is diffuse. Onset: The symptoms/episode kb began/occurred 4 day(s) ago. The symptoms do not radiate. Associated signs and symptoms: Pertinent positives: constipation, Pertinent negatives: nausea, vomiting, and diarrhea. The symptoms are described as constant, crampy. Modifying factors: The symptoms are alleviated by nothing, the symptoms are aggravated by nothing. Severity of pain: At its worst the pain was moderate in the emergency department the pain is unchanged. The patient has not experienced similar symptoms in the past. The patient has not recently seen a physician. Pt reports she started having abd pain 4-5 days ago so she went to [facility]. Labs and CT done there and only showed constipation. Pt has drank 2 bottles of magnesium citrate, done an enema, taken laxatives with no bowel movement. . 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 - Social history:: Smoking status: Patient denies any tobacco usage or history of. ROS: 17:44 Constitutional: Negative for fever, chills, and weight loss, Cardiovascular: Negative kb for chest pain, palpitations, and edema, Respiratory: Negative for shortness of breath, cough, wheezing, and pleuritic chest pain, Back: Negative for injury and pain, MS/Extremity: Negative for injury and deformity, Skin: Negative for injury, rash, and discoloration, Neuro: Negative for headache, weakness, numbness, tingling, and seizure. 17:44 Abdomen/GI: Positive for abdominal pain, constipation, Negative for nausea, vomiting, and diarrhea. Exam: 17:44 Constitutional: This is a well developed, well nourished patient who is awake, alert, kb and in no acute distress. Head/Face: Normocephalic, atraumatic. Chest/axilla: Normal chest wall appearance and motion. Nontender with no deformity. No lesions are appreciated. Cardiovascular: Regular rate and rhythm with a normal S1 and S2. No gallops, murmurs, or rubs. Normal PMI, no JVD. No pulse deficits. Respiratory: Lungs have equal breath sounds bilaterally, clear to auscultation and percussion. No rales, rhonchi or wheezes noted. No increased work of breathing, no retractions or nasal flaring. Back: No spinal tenderness. No costovertebral tenderness. Full range of motion. Skin: Warm, dry with normal turgor. Normal color with no rashes, no lesions, and no evidence of cellulitis. MS/ Extremity: Pulses equal, no cyanosis. Neurovascular intact. Full, normal range of motion. Neuro: Awake and alert, GCS 15, oriented to person, place, time, and situation. Cranial nerves II-XII grossly intact. Motor strength 5/5 in all extremities. Sensory grossly intact. Cerebellar exam normal. Normal gait. 17:44 Abdomen/GI: Inspection: abdomen appears normal, Bowel sounds: normal, in all quadrants, Palpation: soft, in all quadrants, mild abdominal tenderness, in all quadrants. Vital Signs: 14:42 BP 137 / 87; Pulse 104; Resp 16; Temp 98.5; Pulse Ox 100% on R/A; Weight 56.7 kg; hb Height 5 ft. 2 in. (157.48 cm); Pain 10/10; 16:45 BP 117 / 81; Pulse 91; Resp 18 S; Pulse Ox 100% on R/A; ca1 17:45 BP 125 / 79; Pulse 98; Resp 18 S; Pulse Ox 100% ; ca1 14:42 Body Mass Index 22.86 (56.70 kg, 157.48 cm) hb MDM: 16:28 Patient medically screened. kb 17:08 Data reviewed: vital signs, nurses notes. Data interpreted: Pulse oximetry: on room air kb is 100 %. Interpretation: normal. Counseling: I had a detailed discussion with the patient and/or guardian regarding: the historical points, exam findings, and any diagnostic results supporting the discharge/admit diagnosis, radiology results, the need for outpatient follow up, a family practitioner, to return to the emergency department if symptoms worsen or persist or if there are any questions or concerns that arise at home. 17:29 ED course: Pt refused any testing because she just had testing at [facility]. I educated kb her on need for KUB to rule out obstruction. Pt agreed to x-ray only, but does not want any other testing. . 09/11 16:35 Order name: Abdomen 1 View (KUB) XRAY; Complete Time: 17:28 kb Administered Medications: 21:33 CANCELLED (Patient Refused): NS 0.9% 1000 ml IV at 1000 ml once ca1 21:33 Not Given (Pt left before signing discharge papers): Bentyl 20 mg PO once ca1 Disposition: 09/12 14:30 Co-signature as Attending Physician, Oleg Almaguer MD I agree with the assessment and kdr plan of care. Disposition: 09/11/20 17:31 Discharged to Home. Impression: Constipation. - Condition is Stable. - Discharge Instructions: Constipation, Adult, [id number]. - Prescriptions for Bentyl 20 mg Oral Tablet - take 1 tablet by ORAL route every 6 hours As needed; 20 tablet. - Medication Reconciliation Form, Thank You Letter, Antibiotic Education, Prescription Opioid Use form. - Follow up: Emergency Department; When: As needed; Reason: Worsening of condition. Follow up: Private Physician; When: 2 - 3 days; Reason: Recheck today's complaints, Continuance of care, Re-evaluation by your physician. Signatures: Dispatcher [employer] EDMS Malou Bragg, AUTOMOBILE SEAT COVER INSTALLER-C AUTOMOBILE SEAT COVER INSTALLER-Oleg Treadwell MD MD [facility] Reyna Gruber RN RN Char Salcedo RN RN ca1 Corrections: (The following items were deleted from the chart) 09/11 17:45 17:31 09/11/2020 17:31 Discharged to Home. Impression: Constipation. Condition is ca1 Stable. Forms are Medication Reconciliation Form, Thank You Letter, Antibiotic Education, Prescription Opioid Use. Follow up: Emergency Department; When: As needed; Reason: Worsening of condition. Follow up: Private Physician; When: 2 - 3 days; Reason: Recheck today's complaints, Continuance of care, Re-evaluation by your physician. kb
[2020-09-11] MEDS ORDERED: DICYCLOMINE HCL 10 MG CAP ONE (17:50)
[2020-09-11 18:10] VITALS: BP 137/87; TEMP 98.5; O2SAT 100
== END 2020-09-11 17:45 | disposition home or self-care (01) ==
LOC: ER 14:25
DX: K59.00 Constipation, unspecified (principal); Z88.5 Allergy status to narcotic agent
CPT/HCPCS: 74018; 99283

== ENCOUNTER 2021-01-20 11:36 | Emergency (ER) | payer SELFPAY ==
--- OUTSIDE RECORDS SUMMARY | 2021-01-20 11:39 | XMS REPORT | Continuity of Care Document ---
:1995 Author Organization [facility] t Address [address] [place] [address] Care Team Providers Name Role Phone Asked, [...] Active [facility] 12-11 Corpus 00:00: Vita 00 [facility] Social History Social Habit Start Date Stop Date Quantity Comments Source Sex Assigned At [facility] ethodist Tobacco use and 2019-09-01 2019-09-01 Never used [facility] ethodist exposure 00:00:00 00:00:00 Alcohol intake 2019-09-01 2019-09-01 Ex-drinker [facility] 00:00:00 00:00:00 (finding) Medications This patient has no known medications. Procedures This patient has no known procedures. Plan of Care Planned Activity Planned Date Details Comments Source Future Scheduled 2020-06-21 INFLUENZA VACCINE [place] [facility] 00:00:00 [code = INFLUENZA VACCINE] Future Scheduled 2014 Screening for [facility] 00:00:00 malignant neoplasm of cervix (procedure) [code = 428506344] Future Scheduled 2011 Hepatitis C [facility] Test 00:00:00 screening (procedure) [code = 188681192] Future Scheduled 2009 COVID-19 VACCINE (1 [place] [facility] 00:00:00 of 2) [code = COVID-19 VACCINE (1 of 2)] Encounters Start End Encounter Admission Attending Care Care Encounter Source Date/Time Date/Time Type Type Clinicians Facility Department ID 2020-01-07 2020-01-07 Emergency Elio Patel [facility] [id number] 18:19:31 18:38:00 Tia Peters [id number] [place] [id number] [place] [id number] 2020-01-07 2020-01-07 Orders Doctor YADI [id number] 00:00:00 00:00:00 Only Unassigned, KRISTI [id number] [place] [id number] Results This patient has no known results.
--- NOTE | 2021-01-20 12:42 | EDPHYS ---
Physician Documentation [facility] Name: Samira Boston Age: 25 yrs Sex: Female : 1995 Arrival Date: 01/20/2021 Time: 11:39 Bed 25 Private MD: ED Physician Oh Colindres HPI: 01/20 17:00 This 25 yrs old Female presents to ER via Ambulatory with complaints of kb Toothache. 17:00 The patient presents with broken tooth/teeth, pain. The problem is located in the lower kb left first molar (#19). Onset: The symptoms/episode began/occurred last week. Duration: The symptoms are continuous. Modifying factors: The symptoms are alleviated by nothing, the symptoms are aggravated by air. Associated signs and symptoms: Pertinent positives: pain. Severity of symptoms: At their worst the symptoms were severe, in the emergency department the symptoms are unchanged. The patient has not experienced similar symptoms in the past. The patient has been recently seen by a physician:. Pt states she went to the dentist yesterday for a toothache. They prescribed tramadol and antibiotics and told her to return today for extraction. States she went today and they injected lidocaine then started pulling but the pain was too severe so they had to stop. States she is supposed to go back after completing 7 days of antibiotics. They called in tylenol #3, but the pharmacist said it would be a few hours before it would be filled so she came here for pain medication.. 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 - Social history:: Smoking status: unknown. ROS: 16:59 Constitutional: Negative for fever, chills, and weight loss, Cardiovascular: Negative kb for chest pain, palpitations, and edema, Respiratory: Negative for shortness of breath, cough, wheezing, and pleuritic chest pain, Abdomen/GI: Negative for abdominal pain, nausea, vomiting, diarrhea, and constipation, MS/Extremity: Negative for injury and deformity, Skin: Negative for injury, rash, and discoloration, Neuro: Negative for headache, weakness, numbness, tingling, and seizure. 16:59 ENT: Positive for dental pain. Exam: 16:59 Constitutional: This is a well developed, well nourished patient who is awake, alert, kb and in no acute distress. Head/Face: Normocephalic, atraumatic. Chest/axilla: Normal chest wall appearance and motion. Nontender with no deformity. No lesions are appreciated. Cardiovascular: Regular rate and rhythm with a normal S1 and S2. No gallops, murmurs, or rubs. Normal PMI, no JVD. No pulse deficits. Respiratory: Lungs have equal breath sounds bilaterally, clear to auscultation and percussion. No rales, rhonchi or wheezes noted. No increased work of breathing, no retractions or nasal flaring. Abdomen/GI: Soft, non-tender, with normal bowel sounds. No distension or tympany. No guarding or rebound. No evidence of tenderness throughout. Skin: Warm, dry with normal turgor. Normal color with no rashes, no lesions, and no evidence of cellulitis. MS/ Extremity: Pulses equal, no cyanosis. Neurovascular intact. Full, normal range of motion. Neuro: Awake and alert, GCS 15, oriented to person, place, time, and situation. Cranial nerves II-XII grossly intact. Motor strength 5/5 in all extremities. Sensory grossly intact. Cerebellar exam normal. Normal gait. 16:59 ENT: Dental exam: pain, that is severe, specifically in the lower left first molar (#19). Vital Signs: 12:20 BP 118 / 77; Pulse 89; Resp 16; Pulse Ox 100% on R/A; iw 12:45 BP 122 / 73; Pulse 74; Resp 16 S; Pulse Ox 100% on R/A; jd3 MDM: 12:08 Patient medically screened. kb 16:58 Data reviewed: vital signs, nurses notes. Data interpreted: Pulse oximetry: on room air kb is 100 %. Interpretation: normal. Counseling: I had a detailed discussion with the patient and/or guardian regarding: the historical points, exam findings, and any diagnostic results supporting the discharge/admit diagnosis, the need for outpatient follow up, a dentist, to return to the emergency department if symptoms worsen or persist or if there are any questions or concerns that arise at home. Administered Medications: 12:54 Drug: [place] (7.5 mg-325 mg) 1 tabs Route: PO; jd3 13:08 Follow up: Response: Medication administered at discharge.; RASS: Restless (+1) jd3 Disposition: 17:21 Co-signature as Attending Physician, Oh Colindres MD. rn Disposition: 01/20/21 12:42 Discharged to Home. Impression: Toothache. - Condition is Stable. - Discharge Instructions: Tooth Injuries, Nudg-if-Pdud. - Medication Reconciliation Form, Thank You Letter, Antibiotic Education, Prescription Opioid Use form. - Follow up: Emergency Department; When: As needed; Reason: Worsening of condition. Follow up: Private Physician; When: 2 - 3 days; Reason: Recheck today's complaints, Continuance of care, Re-evaluation by your physician. Signatures: Malou Bragg, BONDING AND COMPOSITE FABRICATOR-C BONDING AND COMPOSITE FABRICATOR-Ckb Sylwia Jewell RN RN iw Nieto, Roman, MD MD rn Davies, Jonathon, RN RN jd3 Corrections: (The following items were deleted from the chart) 13:08 12:42 01/20/2021 12:42 Discharged to Home. Impression: Toothache. Condition is Stable. jd3 Forms are Medication Reconciliation Form, Thank You Letter, Antibiotic Education, Prescription Opioid Use. Follow up: Emergency Department; When: As needed; Reason: Worsening of condition. Follow up: Private Physician; When: 2 - 3 days; Reason: Recheck today's complaints, Continuance of care, Re-evaluation by your physician. kb
--- NOTE | 2021-01-20 12:42 | ER ---
Nurse's Notes [facility] Name: Samira Boston Age: 25 yrs Sex: Female : 1995 Arrival Date: 01/20/2021 Time: 11:39 Bed 25 Private MD: Diagnosis: Toothache Presentation: 01/20 12:20 Chief complaint: Patient states: has a broken right lower molar, she went to dentist iw today and tried to have it pulled but it was hurting too much, they told her she had an infection and they called her in some pain meds and antibiotics but the pain is too bad. Coronavirus screen: At this time, the client does not indicate any symptoms associated with coronavirus-19. Ebola Screen: Patient negative for fever greater than or equal to 101.5 degrees Fahrenheit, and additional compatible Ebola Virus Disease symptoms Patient denies exposure to infectious person. Patient denies travel to an Ebola-affected area in the 21 days before illness onset. No symptoms or risks identified at this time. Initial Sepsis Screen: Does the patient meet any 2 criteria? No. Patient's initial sepsis screen is negative. Does the patient have a suspected source of infection? No. Patient's initial sepsis screen is negative. Risk Assessment: Do you want to hurt yourself or someone else? Patient reports no desire to harm self or others. Onset of symptoms was January 20, 2021. 12:20 Method Of Arrival: Ambulatory iw 12:20 Acuity: SHANELL 4 iw HAIR MIXER: 12:45 LMP N/A - Irregular menses jd3 Historical: - Allergies: 12:23 Toradol; iw - Home Meds: 12:23 None [Active]; iw - PMHx: 12:23 None; iw - PSHx: 12:23 None; iw - Immunization history:: Adult Immunizations unknown. - Social history:: Smoking status: unknown. Screenin:06 Abuse screen: Denies threats or abuse. Nutritional screening: No deficits noted. jd3 Tuberculosis screening: No symptoms or risk factors identified. Fall Risk Ambulatory Aid- None/Bed Rest/Nurse Assist (0 pts). Gait- Normal/Bed Rest/Wheelchair (0 pts) Mental Status- Oriented to own ability (0 pts). Total Conte Fall Scale indicates No Risk (0-24 pts). Assessment: 13:04 General: Appears in no apparent distress. uncomfortable, Behavior is calm, cooperative, jd3 appropriate for age. Pain: Complains of pain in mouth Quality of pain is described as sharp, shooting, stabbing. Neuro: Level of Consciousness is awake, alert, obeys commands, Oriented to person, place, time, situation. Cardiovascular: Capillary refill < 3 seconds Patient's skin is warm and dry. Respiratory: Airway is patent Respiratory effort is even, unlabored, Respiratory pattern is regular, symmetrical. GI: No signs and/or symptoms were reported involving the gastrointestinal system. : No signs and/or symptoms were reported regarding the genitourinary system. EENT: Reports pain in mouth. Derm: Skin is intact, Skin is dry, Skin is normal, Skin temperature is warm. Musculoskeletal: Circulation, motion, and sensation intact. Range of motion: intact in all extremities. 13:05 Reassessment: Patient and/or family updated on plan of care and expected duration. Pain jd3 level reassessed. Patient is alert, oriented x 3, equal unlabored respirations, skin warm/dry/pink. even and steady gait upon discharge. pt reported understanding of discharge instructions. pt reported dissatisfaction with care. provider notified. Vital Signs: 12:20 BP 118 / 77; Pulse 89; Resp 16; Pulse Ox 100% on R/A; iw 12:45 BP 122 / 73; Pulse 74; Resp 16 S; Pulse Ox 100% on R/A; jd3 ED Course: 11:39 Patient arrived in ED. mr 12:08 Malou Bragg FNP-C [facility]. kb 12:08 Oh Colindres MD is Attending Physician. kb 12:22 Triage completed. iw 12:41 Dennis Medina, RN is Primary Nurse. jd3 12:41 Arm band placed on. iw 13:07 Patient has correct armband on for positive identification. Bed in low position. Call jd3 light in reach. Side rails up X 1. Pulse ox on. NIBP on. 13:07 No provider procedures requiring assistance completed. Patient did not have IV access jd3 during this emergency room visit. Administered Medications: 12:54 Drug: [place] (7.5 mg-325 mg) 1 tabs Route: PO; jd3 13:08 Follow up: Response: Medication administered at discharge.; RASS: Restless (+1) jd3 Outcome: 12:42 Discharge ordered by MD. brunner 13:07 Discharged to home ambulatory, with family. jd3 13:07 Condition: stable 13:07 Discharge instructions given to patient, Instructed on discharge instructions, follow up and referral plans. Demonstrated understanding of instructions, follow-up care. 13:08 Patient left the ED. jd3 Signatures: Malou Bragg, YAKELIN-C WAREHOUSE INSULATION WORKER-Savanna [place] Irene RN Dennis Ross RN RN jpaul
[2021-01-20] MEDS ORDERED: HYDROCODONE/APAP 7.5/325 MG TAB ONE (13:09)
[2021-01-20 13:27] VITALS: O2SAT 100
[2021-01-20 13:28] VITALS: BP 122/73
== END 2021-01-20 13:08 | disposition home or self-care (01) ==
LOC: ER 11:36
DX: K08.89 Other specified disorders of teeth and supporting structures (principal); Z88.5 Allergy status to narcotic agent
CPT/HCPCS: 99283

== ENCOUNTER 2021-04-12 11:08 | Emergency (ER) | payer SELFPAY ==
--- OUTSIDE RECORDS SUMMARY | 2021-04-12 11:10 | XMS REPORT | Continuity of Care Document ---
:1995 Author Organization [facility] t Address [address] [place] [address] Care Team Providers Name Role Phone Asked, [...] [facility] 00:00: [address] Social History Social Habit Start Date Stop Date Quantity Comments Source Tobacco use and 2019-09-01 2019-09-01 Never used [facility] ethodist exposure 00:00:00 00:00:00 Alcohol intake 2019-09-01 2019-09-01 Ex-drinker Or[facility] Me thodist 00:00:00 00:00:00 (finding) Sex Ass[birth year] At [birth year] You Hester ethodist 00:00:00 00:00:00 Medications This patient has no known medications. Procedures This patient has no known procedures. Plan of Care Planned Activity Planned Date Details Comments Source Future Scheduled 2021-06-21 INFLUENZA VACCINE [place] 00:00:00 [code = INFLUENZA VACCINE] Future Scheduled 2014 Screening for You [facility] Test 00:00:00 malignant neoplasm of cervix (procedure) [code = 702374733] Future Scheduled 2011 Hepatitis C [facility] Test 00:00:00 screening (procedure) [code = 645827677] Future Scheduled 2005 COVID-19 VACCINE (1) [facility] Test 00:00:00 [code = COVID-19 VACCINE (1)] Encounters Start End Encounter Admission Attending Care Care Encounter Source Date/Time Date/Time Type Type Clinicians Facility Department ID 2020-01-07 2020-01-07 Emergency Elio Patel [facility] [id number] 18:19:31 18:38:00 Tia Peters [id number] [place] [id number] [place] [id number] 2020-01-07 2020-01-07 Orders Doctor GRULLON [id number] 00:00:00 00:00:00 Only Unassigned, KRISTI [id number] [place] [id number] [id number] Results This patient has no known results.
--- NOTE | 2021-04-12 11:59 | ER ---
Nurse's Notes [facility] Name: Samira Boston Age: 26 yrs Sex: Female : 1995 Arrival Date: 04/12/2021 Time: 11:11 Bed 13 Private MD: Diagnosis: Bitten by dog Presentation: 04/12 11:20 Chief complaint: Bit multiple times on bilateral feet by family dog while attempting to hb break of dog fight last night. Coronavirus screen: At this time, the client does not indicate any symptoms associated with coronavirus-19. Ebola Screen: No symptoms or risks identified at this time. Initial Sepsis Screen: Does the patient meet any 2 criteria? No. Patient's initial sepsis screen is negative. Does the patient have a suspected source of infection? No. Patient's initial sepsis screen is negative. Risk Assessment: Do you want to hurt yourself or someone else? Patient reports no desire to harm self or others. Onset of symptoms was April 13, 2021. 11:20 Method Of Arrival: Ambulatory hb 11:20 Acuity: SHANELL 4 hb Historical: - Allergies: 11:28 Toradol; hb - PSHx: 11:28 None; hb - Immunization history:: Adult Immunizations up to date. - Social history:: Smoking status: Patient denies any tobacco usage or history of. Assessment: 12:22 General: Appears in no apparent distress. Behavior is calm, cooperative, appropriate tr6 for age. Pain: Complains of pain in b/l ankles. Neuro: No deficits noted. Cardiovascular: No deficits noted. Respiratory: No deficits noted. GI: No deficits noted. : No deficits noted. EENT: No deficits noted. Derm: Skin is intact, Skin is normal, Bruising that is b/l ankles. Musculoskeletal: No deficits noted. Vital Signs: 11:20 BP 124 / 90; Pulse 71; Resp 16; Temp 97.7; Pulse Ox 100% on R/A; Pain 9/10; hb ED Course: 11:11 Patient arrived in ED. mr 11:17 Malou Bragg FNP-C is PHCP. kb 11:17 Bhanu Garcia MD is Attending Physician. kb 11:28 Triage completed. hb 11:28 Arm band placed on. hb 11:38 Nat Parker, RN is Primary Nurse. tr6 11:53 Foot Right 3 View XRAY In Process Unspecified. EDMS 12:19 No provider procedures requiring assistance completed. Patient did not have IV access vg1 during this emergency room visit. Administered Medications: 11:48 Drug: Tylenol 1000 mg Route: PO; tr6 12:10 Follow up: Response: No adverse reaction tr6 12:17 Drug: Tetanus-Diphtheria Toxoid Adult 0.5 ml {Route Relief Driver: [employer]. Exp: vg1 03/12/2022. Lot #: [id number]. } Route: IM; Site: right deltoid; 12:18 Follow up: Response: Medication administered at discharge. vg1 Outcome: 11:59 Discharge ordered by . kannan 12:18 Discharged to home ambulatory. vg1 12:18 Condition: stable 12:18 Discharge instructions given to patient, Instructed on discharge instructions, follow up and referral plans. medication usage, Demonstrated understanding of instructions, follow-up care, medications, Prescriptions given X 2. 12:23 Patient left the ED. vg1 Signatures: Dispatcher [employer] EDMS Malou Bragg, CASIE METEOROLOGICAL ENGINEER-Savanna Rivers Heather, RN RN Samira Santiago RN RN vg1 Nat Parker, KJ RN tr6
--- NOTE | 2021-04-12 11:59 | EDPHYS ---
Physician Documentation [facility] Name: Samira Boston Age: 26 yrs Sex: Female : 1995 Arrival Date: 04/12/2021 Time: 11:11 Bed 13 Private MD: ED Physician Bhanu Garcia HPI: 04/12 12:53 This 26 yrs old Female presents to ER via Ambulatory with complaints of Dog kb Bite. 12:53 The patient was bitten on the left foot and right foot, by a dog, while trying to stop kb animals from fighting, at home. Onset: The symptoms/episode began/occurred yesterday. Animal information: The animal was reported to appear healthy. Animal's vaccinations are up to date. Secondary to the bite the patient reports an abrasion, pain. Associated signs and symptoms: Pertinent positives: pain at site. Severity of symptoms: At their worst the symptoms were moderate, in the emergency department the symptoms are unchanged. The patient has not experienced similar symptoms in the past. The patient has not recently seen a physician. Pt reports her dog and a foster dog got into a fight so she them and her got bit her feet. Reports pain to right heel and inability to walk due to pain because her dog locked onto it. . Historical: - Allergies: 11:28 Toradol; hb - PSHx: 11:28 None; hb - Immunization history:: Adult Immunizations up to date. - Social history:: Smoking status: Patient denies any tobacco usage or history of. ROS: 12:52 Constitutional: Negative for fever, chills, and weight loss. kb 12:52 MS/extremity: Positive for abrasion, ecchymosis, pain, of the heel of right foot. 12:52 Skin: Positive for abrasion(s), ecchymosis, of the right foot and left foot. 12:52 All other systems are negative. Exam: 12:52 Constitutional: This is a well developed, well nourished patient who is awake, alert, kb and in no acute distress. Head/Face: Normocephalic, atraumatic. ENT: Moist Mucous membranes Respiratory: Respirations even and unlabored. No increased work of breathing, no retractions or nasal flaring. MS/ Extremity: Pulses equal, no cyanosis. Neurovascular intact. Full, normal range of motion. Neuro: Awake and alert, GCS 15, oriented to person, place, time, and situation. Moves all extremities. Normal gait. Psych: Awake, alert, with orientation to person, place and time. Behavior, mood, and affect are within normal limits. 12:52 Skin: injury, bite(s), superficial, of the right foot and left foot. Vital Signs: 11:20 BP 124 / 90; Pulse 71; Resp 16; Temp 97.7; Pulse Ox 100% on R/A; Pain 9/10; hb MDM: 11:17 Patient medically screened. kb 11:58 Data reviewed: vital signs, nurses notes. Data interpreted: Pulse oximetry: on room air kb is 100 %. Interpretation: normal. Counseling: I had a detailed discussion with the patient and/or guardian regarding: the historical points, exam findings, and any diagnostic results supporting the discharge/admit diagnosis, radiology results, the need for outpatient follow up, a orthopedic surgeon, to return to the emergency department if symptoms worsen or persist or if there are any questions or concerns that arise at home. 04/12 11:22 Order name: Foot Right 3 View XRAY; Complete Time: 12:15 kb Administered Medications: 11:48 Drug: Tylenol 1000 mg Route: PO; tr6 12:10 Follow up: Response: No adverse reaction tr6 12:17 Drug: Tetanus-Diphtheria Toxoid Adult 0.5 ml {Lamp Shade Joiner: [employer]. Exp: vg1 03/12/2022. Lot #: [id number]. } Route: IM; Site: right deltoid; 12:18 Follow up: Response: Medication administered at discharge. vg1 Disposition: 04/12/21 11:59 Discharged to Home. Impression: Bitten by dog. - Condition is Stable. - Discharge Instructions: Animal Bite, Gvdx-ds-Gfxs. - Prescriptions for Augmentin 875- 125 mg Oral Tablet - take 1 tablet by ORAL route every 12 hours for 7 days; 14 tablet. Tramadol 50 mg Oral Tablet - take 1 tablet by ORAL route every 8 hours as needed; 12 tablet. - Medication Reconciliation Form, Thank You Letter, Antibiotic Education, Prescription Opioid Use form. - Follow up: Emergency Department; When: As needed; Reason: Worsening of condition. Follow up: Private Physician; When: 2 - 3 days; Reason: Recheck today's complaints, Continuance of care, Re-evaluation by your physician. Addendum: 04/16/2021 06:56 Co-signature as Attending Physician, Bhanu Garcia MD. m a2 Signatures: Dispatcher [employer] EDMalou Perez, CAR WASH MANAGER-C CAR WASH MANAGER-Reyna Munoz, RN RN Bhanu Garcia MD MD ma2 Samira Massey RN RN vg1 Nat Parker RN RN tr6 Corrections: (The following items were deleted from the chart) 04/12 12:23 11:59 04/12/2021 11:59 Discharged to Home. Impression: Bitten by dog. Condition is vg1 Stable. Forms are Medication Reconciliation Form, Thank You Letter, Antibiotic Education, Prescription Opioid Use. Follow up: Emergency Department; When: As needed; Reason: Worsening of condition. Follow up: Private Physician; When: 2 - 3 days; Reason: Recheck today's complaints, Continuance of care, Re-evaluation by your physician. kb
[2021-04-12] MEDS ORDERED: ACETAMINOPHEN 500 MG TAB ONE (12:01)
--- NOTE | 2021-04-12 12:14 | RAD REPORT ---
EXAM DESCRIPTION: RAD - Foot Right 3 View - 04/12/2021 11:53 am CLINICAL HISTORY: Right foot pain status post injury FINDINGS: No fracture or dislocation is seen
[2021-04-12] MEDS ORDERED: TETANUS & DIPHTHERIA TOX,ADULT 0.5 ML VIAL ONE (12:25)
[2021-04-12 12:31] VITALS: BP 124/90; TEMP 97.7; O2SAT 100
== END 2021-04-12 12:23 | disposition home or self-care (01) ==
LOC: ER 11:08
DX: S90.872A Other superficial bite of left foot, initial encounter (principal); S90.871A Other superficial bite of right foot, initial encounter; W54.0XXA Bitten by dog, initial encounter; Y93.89 Activity, other specified; Y92.009 Unspecified place in unspecified non-institutional (private) residence as the place of occurrence of the external cause; Z23 Encounter for immunization; Z88.5 Allergy status to narcotic agent
CPT/HCPCS: 90471; 90714; 99283

== ENCOUNTER 2021-07-19 16:12 | Emergency (ER) | payer SELFPAY ==
--- OUTSIDE RECORDS SUMMARY | 2021-07-19 16:14 | XMS REPORT | Continuity of Care Document ---
:1995 Author Organization [facility] t Address [address] [place] [address] Care Team Providers Name Role Phone Asked, [...] Date Clinician Ibuprofe Propensi Active Rash 2018-11 Method i n ty to 0-12 st adverse 00:00: Hospita reaction 00 l s to drug Ketorola Propensi Active Rash 2018-11 Method i c ty to 0-12 st adverse 00:00: Hospita reaction 00 l s to drug ketorola DA Active U [facility] 12-11 [place] 00:00: [address] Social History Social Habit Start Date Stop Date Quantity Comments Source Tobacco use and 2019-09-01 2019-09-01 Never used [facility] exposure 00:00:00 00:00:00 Hospital Alcohol intake 2019-09-01 2019-09-01 Ex-drinker [facility] 00:00:00 00:00:00 (finding) Hospital Sex Assigned At [birth year] Z[facility]ast[facility] 00:00:00 00:00:00 Hospital Smoking Status Start Date Stop Date Source Unknown if ever smoked [facility] Medications Ordered Filled Start Stop Current Ordering Indication Dosage Frequency Signature Comments Components Source Medication Medication Date Date Medication? Clinician (SIG) Name Name No known No Methodi medications [facility]osp[facility] Procedures This patient has no known procedures. Plan of Care Planned Activity Planned Date Details Comments Source Future Scheduled Test Hepatitis C screening [facility] (procedure) [code = 108821334] Future Scheduled Test Screening for [facility] malignant neoplasm of cervix (procedure) [code = 236126835] Future Scheduled Test INFLUENZA VACCINE [facility] [code = INFLUENZA VACCINE] Future Scheduled Test COVID-19 VACCINE (1) [facility] [code = COVID-19 VACCINE (1)] Encounters Start End Encounter Admission Attending Care Care Encounter Source Date/Time Date/Time Type Type Clinicians Facility Department ID 2020-01-07 2020-01-07 Emergency Elio Patel [facility] [id number] 18:19:31 18:38:00 Tia Peters [id number] [place] [id number] [place] [id number] 2020-01-07 2020-01-07 Orders Doctor YADI [id number] 00:00:00 00:00:00 Only Unassigned, KRISTI [id number] [place] [facility] [id number] [id number] Results This patient has no known results.
--- NOTE | 2021-07-19 17:50 | ER ---
Nurse's Notes [facility] Name: Samira Boston Age: 26 yrs Sex: Female : 1995 Arrival Date: 07/19/2021 Time: 16:14 Bed Waiting Private MD: Diagnosis: Presentation: 07/19 16:45 Chief complaint: Patient states: nausea, body sensitive to touch and headaches that ss began "a couple weeks" ago. Coronavirus screen: Client denies travel out of the [place] in the last 14 days. Ebola Screen: Patient denies exposure to infectious person. Patient denies travel to an Ebola-affected area in the 21 days before illness onset. Initial Sepsis Screen: Does the patient meet any 2 criteria? No. Patient's initial sepsis screen is negative. Does the patient have a suspected source of infection? No. Patient's initial sepsis screen is negative. Risk Assessment: Do you want to hurt yourself or someone else? Patient reports no desire to harm self or others. Onset of symptoms was June 21, 2021. 16:45 Method Of Arrival: Ambulatory ss 16:45 Acuity: SHANELL 3 ss Historical: - Allergies: 16:47 Toradol; ss - Home Meds: 16:47 None [Active]; ss - PMHx: 16:47 None; ss - Immunization history:: Client reports having NOT received the Covid vaccine. - Social history:: Smoking status: Patient denies any tobacco usage or history of. Vital Signs: 16:45 Pulse 79; Resp 16; Temp 98.9(TE); Pulse Ox 100% on R/A; Weight 52.16 kg; Height 5 ft. 2 ss in. (157.48 cm); Pain 0/10; 16:47 BP 124 / 90; ss 16:45 Body Mass Index 21.03 (52.16 kg, 157.48 cm) ED Course: 16:14 Patient arrived in ED. mr 16:47 Triage completed. ss 16:47 Arm band placed on right wrist. ss 17:46 Omar Ayala NP is PHCP. pm1 17:46 Bhanu Garcia MD is Attending Physician. pm1 Administered Medications: No medications were administered Outcome: 17:50 Patient left the ED. Signatures: Savanna Maravilla Shelby, RN RN ss Omar Ayala, RETAIL ASSISTANT MANAGER RETAIL ASSISTANT MANAGER pm1
[2021-07-19 18:01] VITALS: TEMP 98.9; O2SAT 100
[2021-07-19 18:02] VITALS: BP 124/90
== END 2021-07-19 17:50 | disposition left against medical advice (07) ==
LOC: ER 16:12
DX: Z53.21 Procedure and treatment not carried out due to patient leaving prior to being seen by health care provider (principal)
CPT/HCPCS: 99281

== ENCOUNTER 2021-07-23 14:13 | Emergency (ER) | payer OTHER, SELFPAY ==
--- OUTSIDE RECORDS SUMMARY | 2021-07-23 14:16 | XMS REPORT | Continuity of Care Document ---
:1995 Author Organization [facility] t Address [address] [place] [address] Care Team Providers Name Role Phone Asked, Pcp Primary Care Physician Unavailable Neftaly UNDERWOOD, T Attending Clinician Unavailable Bryson UNDERWOOD, D Attending Clinician Unavailable Tia Dasilva Attending Clinician Doctor Unassigned, Name Attending Clinician Unavailable Payers Payer Name Policy Type Policy Number Effective Date Expiration Date S ource Problems Condition Condition Condition Status Onset Resolution Last Treating Co mments Source Name Details Category Date Date Treatment Clinician Date No known No known Disease Unive rs active active ity of problems problems [facility] Allergies, Adverse Reactions, Alerts Allergy Allergy Status [...] l s to drug Ketorola Propensi Active Hives Univer s c ty to 3-11 ity of [place] adverse 00:00: [place] reaction [address] [place] [address] ketorola DA Active [facility] -[facility] [place] 00:00: [address] [facility] Social History Social Habit Start Date Stop Date Quantity Comments Source Tobacco use and 2019-09-01 2019-09-01 Never used [facility]ism exposure 00:00:00 00:00:00 Hospital Alcohol intake 2019-09-01 2019-09-01 Ex-drinker [facility] 00:00:00 00:00:00 (finding) Hospital Sex Assigned At [birth year] [facility] 00:00:00 00:00:00 Hospital Smoking Status Start Date Stop Date Source Unknown if ever smoked [facility] Medications Ordered Filled Start Stop Current Ordering Indication Dosage Frequency Signature Comments Components Source Medication Medication Date Date Medication? Clinician (SIG) Name Name traMADol 50 2019- Yes [id number] 50mg Take 1 [facility] mg tablet 2-17 tablet by ity o f 00:00: mouth [place] 00 every 6 Medical (six) Branch hours as needed for Pain (scale 4-6). ibuprofen 2019- Yes [id number] 600mg Take 1 U nivers 600 mg 2-17 tablet by ity of tablet 00:00: mouth [place] 00 every 6 Medical (six) Branch hours as needed for Pain (scale 4-6). traMADol 50 Yes [id number] 50mg Take 1 [facility] mg tablet 2-17 tablet by ity o f 00:00: mouth [place] 00 every 6 Medical (six) Branch hours as needed for Pain (scale 4-6). ibuprofen 2019- Yes [id number] 600mg Take 1 U nivers 600 mg 2-17 tablet by ity of tablet 00:00: mouth [place] 00 every 6 Medical (six) Branch hours as needed for Pain (scale 4-6). acetaminoph Yes [id number] 1{tbl} Take 1 Univers en-codeine 3-11 tablet by ity of 300-30 mg 00:00: mouth [place] tablet 00 every 6 Medical (six) Branch hours as needed for Pain (scale 7-10). acetaminoph Yes [id number] 1{tbl} Take 1 Univers en-codeine 3-11 tablet by ity of 300-30 mg 00:00: mouth [place] tablet 00 every 6 Medical (six) Branch hours as needed for Pain (scale 7-10). cyclobenzap 2017-11 Yes 10mg Take 1 Univ ers rine 10 mg 0-15 tablet by ity of tablet 00:00: mouth 3 [place] 00 (three) Medical times Branch daily. acetaminoph 2017-11 Yes 1{tbl} Take 1 Un cindy en-codeine 0-15 tablet by ity of 300-30 mg 00:00: mouth [place] tablet 00 every 4 Medical (four) Branch hours as needed for Pain (scale 4-6). cyclobenzap 2017-11 Yes 10mg Take 1 Univ ers rine 10 mg 0-15 tablet by ity of tablet 00:00: mouth 3 [place] 00 (three) Medical times Branch daily. acetaminoph 2017-11 Yes 1{tbl} Take 1 Un cindy en-codeine 0-15 tablet by ity of 300-30 mg 00:00: mouth [place] tablet 00 every 4 Medical (four) Branch hours as needed for Pain (scale 4-6). No known No Methodi medications [facility]osp[facility] No known No Methodi medications [facility]osp[facility] l Procedures This patient has no known procedures. Plan of Care Planned Activity Planned Date Details Comments Source Future Scheduled Test INFLUENZA VACCINE [facility] [code = INFLUENZA VACCINE] Future Scheduled Test COVID-19 VACCINE (1) [facility] [code = COVID-19 VACCINE (1)] Future Scheduled Test Hepatitis C screening [facility] (procedure) [code = 423641701] Future Scheduled Test Hepatitis C screening [facility] (procedure) [code = 070305806] Future Scheduled Test Screening for [facility] malignant neoplasm of cervix (procedure) [code = 142412225] Future Scheduled Test INFLUENZA VACCINE [facility] [code = INFLUENZA VACCINE] Future Scheduled Test COVID-19 VACCINE (1) [facility] [code = COVID-19 VACCINE (1)] Future Scheduled Test Screening for [facility] malignant neoplasm of cervix (procedure) [code = 577299924] Encounters Start End Encounter Admission Attending Care Care Encounter Source Date/Time Date/Time Type Type Clinicians Facility Department ID 2021-07-23 2021-07-23 Nurse YADI Higginbotham [id number] Univers 00:00:00 00:00:00 Triage Danelle BERRY [id number] [facility] [id number] [place] [id number] [place] [address] Branch 2021-07-23 2021-07-23 Nurse YADI Massey [id number] Univers 00:00:00 00:00:00 Triage Vani Shwetha BERRY [id number] i ty of [facility] [id number] [place] [id number] [place] [address] Branch 2020-01-07 2020-01-07 Emergency Elio Patel [facility] [id number] 18:19:31 18:38:00 Tia Peters [id number] [place] [id number] [place] [id number] 2020-01-07 2020-01-07 Orders Doctor YADI [id number] 00:00:00 00:00:00 Only Unassigned, KRISTI [id number] [place] [facility] [id number] [id number] [id number] Results This patient has no known results.
[2021-07-23 15:13] LABS: Urine Blood Negative (Negative); Urine Glucose Negative (Negative); Urine Protein Negative (Negative); Urine pH 8.5 (5.0-7.0)
[2021-07-23 15:35] LABS: Absolute Lymphocytes (CBC) 2.1 K/uL (0.7-4.9); Basophils % 0.5 % (0-1.3); Lymphocytes % 21.8 % (15.3-44.8); MPV 8.3 fL (7.6-11.3); RBC Red Blood Cell Count 4.11 M/uL (3.86-4.86)
[2021-07-23] MEDS ORDERED: NA CHLORIDE 0.9% 1,000 ML ONE (15:35)
[2021-07-23 16:05] LABS: BUN Blood Urea Nitrogen 9 mg/dL (7-18); Bicarbonate 27 mmol/L (21-32); Glucose Level 89 mg/dL (74-106); Sodium Level 137 mmol/L (136-145)
[2021-07-23 16:09] LABS: HCG, Quantitative 55442 mIU/mL (1-3)
--- NOTE | 2021-07-23 16:25 | RAD REPORT ---
EXAM DESCRIPTION: US - Transvaginal OB - 07/23/2021 4:14 pm CLINICAL HISTORY: VAGINAL BLEEDING , vaginal bleeding COMPARISON: No comparisons FINDINGS: A single gestational sac is seen within the uterus. The shape of the sac is within normal limits for gestational age. Within the sac is a single pole with crown-rump length of 6 mm, cor relating to estimated gestational age of 6 weeks 4 days. Estimated date of delivery is 03/14/2022. Heart rate is 126 BPM. The placenta is not yet developed due to early gestational age. The maternal adnexa and ovaries are within normal limits. Normal Doppler blood flow was demonstrated to both ovaries. IMPRESSION: Single live early intrauterine gestation with estimated gestational age of 6 weeks 4 day s, BLAZE 03/14/2022. No unusual or unexpected finding.
--- NOTE | 2021-07-23 16:32 | ER ---
Nurse's Notes [facility] Name: Samira Boston Age: 26 yrs Sex: Female : 1995 Arrival Date: 07/23/2021 Time: 14:24 Bed Waiting Private MD: Diagnosis: Less than 8 weeks gestation of ;Threatened Presentation: 07/23 15:00 Chief complaint: Patient states: Abdominal pain, cramping. dizziness, nausea, spotting kg x 2days. Pt stated she went to [facility] and was told she was and tested for COVID but told she was negative. Coronavirus screen: Vaccine status: Patient reports being unvaccinated. Client denies travel out of the [place] in the last 14 days. At this time, unable to obtain information related to travel outside the [place] Client presents with at least one sign or symptom that may indicate coronavirus-19. Standard/surgical mask placed on the client. Provider contacted for isolation considerations. Ebola Screen: Patient negative for fever greater than or equal to 101.5 degrees Fahrenheit, and additional compatible Ebola Virus Disease symptoms Patient denies exposure to infectious person. Patient denies travel to an Ebola-affected area in the 21 days before illness onset. Initial Sepsis Screen: Does the patient meet any 2 criteria? No. Patient's initial sepsis screen is negative. Does the patient have a suspected source of infection? No. Patient's initial sepsis screen is negative. Risk Assessment: Do you want to hurt yourself or someone else? Patient reports no desire to harm self or others. Onset of symptoms was July 21, 2021. 15:00 Method Of Arrival: Ambulatory kg 15:00 Acuity: SHANELL 3 kg Triage Assessment: 15:04 General: Appears in no apparent distress. Behavior is calm, cooperative, appropriate kg for age, quiet. Pain: Complains of pain in abdomen. GI: Reports cramping, nausea, vomiting. : Reports vaginal bleeding that is. ENERGY ASSISTANT: 15:04 LMP 05/26/2021 kg 16:30 1, 0, Living 0, LMP 05/25/2021 kb Historical: - Allergies: 15:04 Toradol; kg - Home Meds: 15:04 None [Active]; kg - PMHx: 15:04 None; kg - PSHx: 15:04 None; kg - Immunization history:: Adult Immunizations not up to date, Client reports having NOT received the Covid vaccine. - Social history:: Smoking status: Patient denies any tobacco usage or history of. Screenin:05 Abuse screen: Denies threats or abuse. Denies injuries from another. Nutritional kg screening: No deficits noted. Tuberculosis screening: No symptoms or risk factors identified. Fall Risk None identified. Assessment: 17:19 General: Appears in no apparent distress. comfortable, Behavior is calm, cooperative. ss Respiratory: Airway is patent Respiratory effort is even, unlabored, Respiratory pattern is regular, symmetrical. EENT: Oral mucosa is moist. Throat is clear. Derm: Skin is intact, is healthy with good turgor, Skin is dry, Skin is pink, warm \T\ dry. normal. Vital Signs: 15:00 BP 110 / 67; Pulse 82; Resp 16; Temp 98.6(TE); Pulse Ox 100% on R/A; Weight 45.36 kg kg (R); Height 5 ft. 2 in. (157.48 cm) (R); 15:00 Body Mass Index 18.29 (45.36 kg, 157.48 cm) kg ED Course: 14:24 Patient arrived in ED. mr 15:04 Triage completed. kg 15:04 Arm band placed on right wrist. kg 15:05 Malou Bragg FNP-C is [facility]. kb 15:05 Sb Zapata MD is Attending Physician. kb 15:05 Patient has correct armband on for positive identification. kg 16:14 US Transvaginal Ob In Process Unspecified. EDMS 16:42 No provider procedures requiring assistance completed. IV discontinued, intact, ss bleeding controlled, No redness/swelling at site. Pressure dressing applied. Administered Medications: No medications were administered Outcome: 16:31 Discharge ordered by . kb 16:42 Discharged to home ambulatory, with significant other. ss 16:42 Condition: good 16:42 Discharge instructions given to patient, Instructed on discharge instructions, follow up and referral plans. Demonstrated understanding of instructions, follow-up care. 17:20 Patient left the ED. ss Signatures: Dispatcher [employer] EDMS Malou Bragg FNP-C FNP-Ckb Rivera, Mary mr Ena Britt, KJ RN ss Caryl Fernandez, RN RN kg
--- NOTE | 2021-07-23 16:33 | EDPHYS ---
Physician Documentation [facility] Name: Samira Boston Age: 26 yrs Sex: Female : 1995 Arrival Date: 07/23/2021 Time: 14:24 Bed Waiting Private MD: RAYMON Physician Sb Zapata HPI: 07/23 16:29 This 26 yrs old Female presents to ER via Ambulatory with complaints of kb , Abdominal Cramping. 16:30 The patient presents to the emergency department with abdominal pain, of the suprapubic kb area, described as crampy, vaginal bleeding, described as spotting. course: care: none, Leakage of Fluid: none appreciated, Ultrasound: the patient has not had an ultrasound. Previous pregnancies: the patient has never been . Associated signs and symptoms: Pertinent positives: abdominal pain, nausea, vaginal bleeding, dizziness. The patient has not experienced similar symptoms in the past. The patient has not recently seen a physician. 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 - Social history:: Smoking status: Patient denies any tobacco usage or history of. ROS: 16:29 Constitutional: Negative for fever, chills, and weight loss. kb 16:29 Abdomen/GI: Positive for nausea, abdominal cramps. 16:29 : Positive for vaginal bleeding. 16:29 Neuro: Positive for dizziness. 16:29 All other systems are negative. Exam: 16:29 Constitutional: This is a well developed, well nourished patient who is awake, alert, kb and in no acute distress. Head/Face: Normocephalic, atraumatic. ENT: Moist Mucous membranes Cardiovascular: Regular rate and rhythm with a normal S1 and S2. No gallops, murmurs, or rubs. No pulse deficits. Respiratory: Respirations even and unlabored. No increased work of breathing, no retractions or nasal flaring. Abdomen/GI: Soft, non-tender. No distention Skin: Warm, dry with normal turgor. Normal color. MS/ Extremity: Pulses equal, no cyanosis. Neurovascular intact. Full, normal range of motion. Neuro: Awake and alert, GCS 15, oriented to person, place, time, and situation. Moves all extremities. Normal gait. Psych: Awake, alert, with orientation to person, place and time. Behavior, mood, and affect are within normal limits. Vital Signs: 15:00 BP 110 / 67; Pulse 82; Resp 16; Temp 98.6(TE); Pulse Ox 100% on R/A; Weight 45.36 kg kg (R); Height 5 ft. 2 in. (157.48 cm) (R); 15:00 Body Mass Index 18.29 (45.36 kg, 157.48 cm) kg MDM: 15:05 Patient medically screened. kb 16:28 Data reviewed: vital signs, nurses notes. Data interpreted: Pulse oximetry: on room air kb is 100 %. Interpretation: normal. Counseling: I had a detailed discussion with the patient and/or guardian regarding: the historical points, exam findings, and any diagnostic results supporting the discharge/admit diagnosis, lab results, radiology results, the need for outpatient follow up, an OB/Gyne specialist, to return to the emergency department if symptoms worsen or persist or if there are any questions or concerns that arise at home. 07/23 15:05 Order name: Abo/rh Typing; Complete Time: 16:19 kb 07/23 15:05 Order name: Basic Metabolic Panel; Complete Time: 16:19 kb 07/23 15:05 Order name: CBC with Diff; Complete Time: 15:41 kb 07/23 15:05 Order name: Quantitative Hcg; Complete Time: 16:19 kb 07/23 15:12 Order name: Urine Dipstick-Ancillary; Complete Time: 15:17 EDMS 07/23 16:22 Order name: ABO/RH no charge; Complete Time: 16:28 EDMS 07/23 15:05 Order name: IV Saline Lock; Complete Time: 16:43 kb 07/23 15:05 Order name: Labs collected and sent; Complete Time: 16:43 kb 07/23 15:05 Order name: NPO; Complete Time: 16:43 kb 07/23 15:05 Order name: Urine Dipstick-Ancillary (obtain specimen); Complete Time: 16:43 kb 07/23 15:05 Order name: Urine Test (obtain specimen); Complete Time: 16:43 kb 07/23 15:17 Order name: US Transvaginal Ob; Complete Time: 16:28 kb Administered Medications: No medications were administered Disposition: 07/24 08:23 Co-signature as Attending Physician, Sb Zapata MD I agree with the assessment and matt plan of care. Disposition Summary: 07/23/21 16:31 Discharge Ordered Location: Home kb Condition: Stable kb Diagnosis - Less than 8 weeks gestation of kb - Threatened kb Followup: kb - With: Emergency Department - When: As needed - Reason: Worsening of condition Followup: kb - With: Private Physician - When: 2 - 3 days - Reason: Recheck today's complaints, Continuance of care, Re-evaluation by your physician Discharge Instructions: - Discharge Summary Sheet kb - First Trimester of , [id number] kb - Threatened Miscarriage, [id number] kb Forms: - Medication Reconciliation Form kb - Thank You Letter kb - Antibiotic Education kb - Prescription Opioid Use kb Signatures: Dispatcher [employer] EDMalou Perez, GROCERY DELIVERER-C GROCERY DELIVERER-Sb Kraus MD MD cha Graham, Kristen, RN RN kg Corrections: (The following items were deleted from the chart) 07/23 16:31 16:29 Abdomen/GI: Positive for abdominal cramps, kb kb
[2021-07-23 17:27] VITALS: BP 110/67; TEMP 98.6; O2SAT 100
== END 2021-07-23 17:20 | disposition home or self-care (01) ==
LOC: ER 14:13
DX: O20.0 Threatened abortion (principal); Z3A.01 Less than 8 weeks gestation of pregnancy; Z88.5 Allergy status to narcotic agent
CPT/HCPCS: 85025; 80048; 36415; 86900; 86901; 84702; 81003; 76817; 99283; J7030

== ENCOUNTER 2021-09-23 10:30 | Emergency (ER) | payer OTHER ==
[2021-09-23] MEDS ORDERED: NA CHLORIDE 0.9% 1,000 ML ONE (10:59)
[2021-09-23 11:19] LABS: Urine Blood Negative (Negative); Urine Glucose Negative (Negative); Urine Protein Negative (Negative); Urine Specific Gravity 1.025 (1.005-1.030); Urine pH 8.5 (5.0-7.0)
[2021-09-23 11:24] LABS: Absolute Lymphocytes (CBC) 1.5 K/uL (0.7-4.9); Basophils % 0.2 % (0-1.3); Hematocrit 33.3 % (36.0-45.0); Lymphocytes % 12.1 % (15.3-44.8); MPV 7.4 fL (7.6-11.3); RBC Red Blood Cell Count 3.68 M/uL (3.86-4.86)
[2021-09-23 11:30] LABS: BUN Blood Urea Nitrogen 12 mg/dL (7-18); Bicarbonate 26 mmol/L (21-32); Glucose Level 74 mg/dL (74-106); Potassium 3.8 mmol/L (3.5-5.1); Sodium Level 139 mmol/L (136-145)
--- NOTE | 2021-09-23 11:49 | RAD REPORT ---
EXAM DESCRIPTION: CT - Head Brain Wo Cont - 09/23/2021 11:24 am CLINICAL HISTORY: Headache COMPARISON: None. TECHNIQUE: Computed axial tomography of the head was obtained. IV contrast was not requested. All CT scans are performed using dose optimization technique as appropriate and may include automated exposure control or mA/KV adjustment according to patient size. FINDINGS: 3 millimeter area mildly increased density left basal ganglia. The ventricles are normal in caliber. No extra-axial fluid collection is noted. Fluid within the sinuses/ mastoids is not seen. IMPRESSION: 3 millimeter area of mild increased left basal ganglia probably early calcification. A b leed is considerably less likely. This should be correlated clinically to see if the patient has loca lizing signs to suggest this. If the diagnosis remains uncertain MRI would be recommended. Examination discussed with Juan M in the Emergency Room
[2021-09-23 12:11] LABS: Urine Bacteria <20 /HPF (<20); Urine RBC NONE SEEN /HPF (NONE SEEN)
[2021-09-23 12:12] LABS: Urine Amorphous Sediment 4+ /HPF (NONE SEEN)
--- NOTE | 2021-09-23 12:58 | RAD REPORT ---
EXAM DESCRIPTION: MRI - Brain Wo Cont - 09/23/2021 12:48 pm CLINICAL HISTORY: HEADACHE COMPARISON: No comparisons TECHNIQUE: Sagittal T1-weighted images were obtained along with PD/heavily T2-weighted and T2-FLAIR images. Axial DWI and ADC mapping sequences were also obtained along with coronal heavily T2-weighted images were obtained. FINDINGS: No intracranial hemorrhage, mass or acute infarction. There is no edema or shift of midlin e structures. No extra-axial fluid collections. Signal voids are seen as a normal finding in the carlos r intracranial vessels. No significant white matter disease. Mastoid air cells and paranasal sinuses are clear. IMPRESSION: Negative non-contrast MRI of the Brain.
[2021-09-23 14:03] LABS: Urine Specific Gravity/Preg 1.025 (1.005-1.030)
--- NOTE | 2021-09-23 14:10 | ER ---
Nurse's Notes [facility] Name: Samira Boston Age: 26 yrs Sex: Female : 1995 Arrival Date: 09/23/2021 Time: 10:31 Bed 15 Private MD: Jaquan Farley B Diagnosis: Headache Presentation: 09/23 10:52 Chief complaint: Patient states: ROWAN's since Aug.23. Saw her OB 09/08, diagnosed as ll1 anemic and started on iron pills. States ROWAN's and N/V have gotten worse since starting the iron pills. States she feels fatigued easily, and sleepier. Gait steady. No fever or cough. 15 weeks G1, P0. Chief complaint:. Coronavirus screen: Vaccine status: Patient reports being unvaccinated. Client denies travel out of the [place] in the last 14 days. fatigue, headache. Ebola Screen: Patient denies travel to an Ebola-affected area in the 21 days before illness onset. Initial Sepsis Screen: Does the patient meet any 2 criteria? No. Patient's initial sepsis screen is negative. Does the patient have a suspected source of infection? Yes: Other: ROWAN's. Risk Assessment: Do you want to hurt yourself or someone else? Patient reports no desire to harm self or others. Onset of symptoms was August 23, 2021. 10:52 Method Of Arrival: Ambulatory ll1 10:52 Acuity: SHANELL 3 ll1 Triage Assessment: 14:19 Headache History: Denies prior headaches. General: Appears in no apparent distress. ll1 Behavior is calm, cooperative, appropriate for age. Pain: Pain began Aug 23 Also complains of nausea. Pain: Denies pain. SLASHER: 14:18 15 weeks ll1 Historical: - Allergies: 10:52 Toradol; ll1 - PMHx: 10:52 None; ll1 - PSHx: 10:52 None; ll1 - Immunization history:: Client reports having NOT received the Covid vaccine. - Social history:: Smoking status: Patient denies any tobacco usage or history of. - Family history:: not pertinent. - Hospitalizations: : No recent hospitalization is reported. Screenin:04 Abuse screen: Denies threats or abuse. Denies injuries from another. Nutritional jt3 screening: No deficits noted. Tuberculosis screening: No symptoms or risk factors identified. Fall Risk None identified. Assessment: 11:04 General: Appears in no apparent distress. Behavior is calm, cooperative. Pain: jt3 Complains of pain in face Pain radiates to scalp Pain currently is 6 out of 10 on a pain scale. Quality of pain is described as throbbing. Neuro: Reports headache occipital area, Pt. reports headache for 2 weeks. Pt. states headache got worse after taking iron pills related to anemia. 13:40 Reassessment: No changes from previously documented assessment. jt3 14:21 Reassessment: No changes from previously documented assessment. Patient and/or family ll1 updated on plan of care and expected duration. Pain level reassessed. Patient is alert, oriented x 3, equal unlabored respirations, skin warm/dry/pink. Vital Signs: 10:52 BP 106 / 79; Pulse 88; Resp 18; Temp 98.7; Pulse Ox 100% ; Weight 52.16 kg; Height 5 ll1 ft. 2 in. (157.48 cm); Pain 8/10; 13:39 BP 110 / 59; Pulse 91; Resp 16; Pulse Ox 98% on R/A; jt3 14:18 BP 115 / 66; Pulse 77; Resp 16; Pulse Ox 100% ; Pain 0/10; ll1 10:52 Body Mass Index 21.03 (52.16 kg, 157.48 cm) ll1 [place] Coma Score: 13:44 Eye Response: spontaneous(4). Verbal Response: oriented(5). Motor Response: obeys rn commands(6). Total: 15. ED Course: 10:31 Patient arrived in ED. as 10:31 Jaquan Farley MD is Private Physician. as 10:37 Oh Colindres MD is Attending Physician. rn 10:44 Gutierrez Cui RN is Primary Nurse. jt3 10:45 Arm band placed on Patient placed in an exam room, on a stretcher. ll1 10:56 Triage completed. ll1 11:04 Patient has correct armband on for positive identification. Bed in low position. Call jt3 light in reach. Side rails up X2. 11:04 No provider procedures requiring assistance completed. jt3 11:20 CT Head Brain wo Cont In Process Unspecified. EDMS 11:22 Inserted saline lock: 22 gauge in left antecubital area, using aseptic technique. Blood gd collected. 11:23 Urine collected: clean catch specimen, cloudy. gd 12:43 Pt. transported to MRI. jt3 12:48 Brain Wo Cont MRI In Process Unspecified. EDMS 14:19 IV discontinued, intact, bleeding controlled, No redness/swelling at site. Pressure ll1 dressing applied. Administered Medications: 11:15 Drug: NS 0.9% 1000 ml Route: IV; Rate: 1000 ml; Site: left antecubital; jt3 14:20 Follow up: Response: No adverse reaction; IV Status: Order to discontinue infusion; IV ll1 Intake: 50ml Intake: 14:20 IV: 50ml; Total: 50ml. ll1 Outcome: 14:09 Discharge ordered by . rn 14:20 Discharged to home ambulatory. ll1 14:20 Condition: stable 14:20 Discharge instructions given to patient, Instructed on discharge instructions, follow up and referral plans. Demonstrated understanding of instructions, follow-up care. 14:21 Patient left the ED. ll1 Signatures: Dispatcher [employer] Ivy Rust Roman, MD MD rn Lewis, Lynsay, RN RN ll1 Lenard Gonzalez Jordan, RN RN jt3
--- NOTE | 2021-09-23 14:10 | EDPHYS ---
Physician Documentation [facility] Name: Samira Boston Age: 26 yrs Sex: Female : 1995 Arrival Date: 09/23/2021 Time: 10:31 Bed 15 Private MD: Jaquan Farley B ED Physician Oh Colindres HPI: 09/23 10:50 This 26 yrs old Female presents to ER via Unassigned with complaints of rn Headache - 15 wks preg. 10:50 The patient complains of pain to the top of head and forehead. The patient describes rn the headache as aching. Onset: The symptoms/episode began/occurred 2.5 week(s) ago. Associated signs and symptoms: Pertinent positives: malaise, Pertinent negatives: fever, neck stiffness, paresthesias, rash, sinus congestion, sinus tenderness, vision changes, vision loss, vomiting, weakness, vertigo. Severity of symptoms: At its worst the pain was moderate, in the emergency department the pain has improved. Headache History: Denies prior headaches. The symptoms are alleviated by nothing. the symptoms are aggravated by nothing. The patient has not experienced similar symptoms in the past. The patient has been recently seen by a physician:. Patient reports 2.5 weeks of intermittent headache and malaise. No fever. No trauma. Seen by OB and the only thing they could find was anemia and told to take iron supplementation which she has. Denies focal neurological complaints. No history of migraines or headaches. Denies congestion/cough. No known sick contacts. No chills. No neck stiffness.. 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 - Social history:: Smoking status: Patient denies any tobacco usage or history of. - Family history:: not pertinent. - Hospitalizations: : No recent hospitalization is reported. ROS: 10:50 Constitutional: Negative for fever, chills, and weight loss, Eyes: Negative for injury, rn pain, redness, and discharge, ENT: Negative for injury, pain, and discharge, Neck: Negative for injury, pain, and swelling, Cardiovascular: Negative for chest pain, palpitations, and edema, Respiratory: Negative for shortness of breath, cough, wheezing, and pleuritic chest pain, Abdomen/GI: Negative for abdominal pain,diarrhea, and constipation, Back: Negative for injury and pain, : Negative for injury, bleeding, discharge, and swelling, MS/Extremity: Negative for injury and deformity, Skin: Negative for injury, rash, and discoloration, Neuro: Negative for numbness, tingling, and seizure. Exam: 10:50 Constitutional: This is a well developed, well nourished patient who is awake, alert, rn and in no acute distress. Head/Face: Normocephalic, atraumatic. Eyes: Periorbital areas with no swelling, redness, or edema. ENT: No stridor Neck: Trachea midline, no thyromegaly or masses palpated, and no cervical lymphadenopathy. Supple, full range of motion without nuchal rigidity, or vertebral point tenderness. No Meningismus. Cardiovascular: Regular rate and rhythm. No pulse deficits. Respiratory: No increased work of breathing, no retractions or nasal flaring. Abdomen/GI: Soft, non-tender Skin: Warm, dry, no rashes MS/ Extremity: Pulses equal, no cyanosis. Neuro: Awake and alert, GCS 15, oriented to person, place, time, and situation. Cranial nerves II-XII grossly intact. Motor strength 5/5 in all extremities. Sensory grossly intact. Cerebellar exam normal. Vital Signs: 10:52 BP 106 / 79; Pulse 88; Resp 18; Temp 98.7; Pulse Ox 100% ; Weight 52.16 kg; Height 5 ll1 ft. 2 in. (157.48 cm); Pain 8/10; 13:39 BP 110 / 59; Pulse 91; Resp 16; Pulse Ox 98% on R/A; jt3 14:18 BP 115 / 66; Pulse 77; Resp 16; Pulse Ox 100% ; Pain 0/10; ll1 10:52 Body Mass Index 21.03 (52.16 kg, 157.48 cm) ll1 [place] Coma Score: 13:44 Eye Response: spontaneous(4). Verbal Response: oriented(5). Motor Response: obeys rn commands(6). Total: 15. MDM: 10:37 Patient medically screened. rn 13:44 Differential diagnosis: cluster headache, hypertensive headache, intracerebral rn hemorrhage, migraine, neoplasm, tension headache, uremia, vasomotor headache. 14:08 Data reviewed: vital signs, nurses notes, lab test result(s), radiologic studies, CT rn scan, MRI, and as a result, I will discharge patient. Counseling: I had a detailed discussion with the patient and/or guardian regarding: the historical points, exam findings, and any diagnostic results supporting the discharge/admit diagnosis, lab results, radiology results, the need for outpatient follow up, to return to the emergency department if symptoms worsen or persist or if there are any questions or concerns that arise at home. Response to treatment: the patient's symptoms have mildly improved after treatment, and as a result, I will discharge patient. Special discussion: I discussed with the patient/guardian in detail that at this point there is no indication for admission to the hospital. It is understood, however, that if the symptoms persist or worsen the patient needs to return immediately for re-evaluation. Based on the history and exam findings, there is no indication for further emergent testing or inpatient evaluation. I discussed with the patient/guardian the need to see the OB Gyne specialist for further evaluation of the symptoms. 09/23 10:49 Order name: CBC with Diff; Complete Time: 11: rn 09/23 10:49 Order name: Basic Metabolic Panel; Complete Time: 11: rn 09/23 10:49 Order name: Urine Microscopic Only; Complete Time: 13: rn 09/23 10:49 Order name: COVID-19 SARS RT PCR (Document "Date of Onset" if Symptomatic); Complete rn Time: 13:44 09/23 10:49 Order name: [place]ts Screen Profile; Complete Time: 13: rn 09/23 11:18 Order name: Urine Dipstick-Ancillary; Complete Time: 11:53 EDMS 09/23 10:49 Order name: CT Head Brain wo Cont; Complete Time: 11:53 rn 09/23 10:49 Order name: IV Start; Complete Time: 11: rn 09/23 10:49 Order name: Urine Dipstick-Ancillary (obtain specimen); Complete Time: 11: rn 09/23 11:20 Order name: Urine --Ancillary (enter results); Complete Time: 14:08 bd 09/23 11:53 Order name: Brain Wo Cont MRI; Complete Time: 13:04 rn Administered Medications: 11:15 Drug: NS 0.9% 1000 ml Route: IV; Rate: 1000 ml; Site: left antecubital; jt3 14:20 Follow up: Response: No adverse reaction; IV Status: Order to discontinue infusion; IV ll1 Intake: 50ml Disposition Summary: 09/23/21 14:09 Discharge Ordered Location: Home rn Problem: new rn Symptoms: have improved rn Condition: Stable rn Diagnosis - Headache rn Followup: rn - With: Private Physician - When: As needed - Reason: Recheck today's complaints, Re-evaluation by your physician Discharge Instructions: - Discharge Summary Sheet rn - General Headache Without Cause rn Forms: - Medication Reconciliation Form rn - Thank You Letter rn - Antibiotic pattern cutter - Prescription Opioid Use rn Signatures: Dispatcher [employer] Oh Haas MD MD rn Lewis, Lynsay RN RN ll1 Gutierrez Cui, RN RN jt3
[2021-09-23 14:58] VITALS: TEMP 98.7
[2021-09-23 15:01] VITALS: BP 115/66; O2SAT 100
== END 2021-09-23 14:21 | disposition home or self-care (01) ==
LOC: ER 10:30
DX: O26.892 Other specified pregnancy related conditions, second trimester (principal); Z3A.15 15 weeks gestation of pregnancy; Z20.822 Contact with and (suspected) exposure to COVID-19; Z88.5 Allergy status to narcotic agent
CPT/HCPCS: 96361; 85025; 80048; 36415; 86308; 81025; 70450; 70551; 96360; 99284; U0003; J7030; 81003; 81015

== ENCOUNTER 2022-02-23 15:49 | Inpatient (IN) | payer OTHER ==
--- OUTSIDE RECORDS SUMMARY | 2022-02-23 15:52 | XMS REPORT | Continuity of Care Document ---
:1995 Author Organization [facility] t Address [address] [place] [address] Care Team Providers Name Role Phone Asked, Pcp Primary Care Physician Unavailable Rio LENTZ Attending Clinician Unavailable Doctor Unassigned, Name Attending Clinician Unavailable Rio Carlisle Attending Clinician Shwetha Massey RN Attending Clinician Unavailable Neftaly UNDERWOOD, T Attending Clinician Unavailable G_Pappas Attending Clinician Unavailable Tia Dasilva Attending Clinician G_Pappas Admitting Clinician Unavailable Payers Payer Name Policy Type Policy Number Effective Date Expiration Date [facility] [id number] 2021 CHOICE MEDICAID 00:00:00 [place] [id number] [place] Problems Condition Condition Condition Status Onset Resolution Last Treating Co mments Source Name Details Category Date Date Treatment Clinician Date Cervical Cervical Disease Active Overview: Un cindy Papanicola Papanicola 9-24 Formattin ity of ou smear ou smear 00:00: g of this [place] as negative negative 00 note Medica l within within might be Branch last 12 last 12 different months months from the original. NIL pap 03/2021, HPV neg, see scanned records HGSIL on HGSIL on Disease Active Overview: Un cindy Pap smear Pap smear 07-31 Formattin i ty of of cervix of cervix 00:00: [place] of this [place] 00 note Medical might be Branch different from the original. 01/2018 SREE 2-3 noted on leep Supervisio Supervisio Disease Active U nivers n of n of 08 it[place] of high[place]risk [place] [facility] Nausea and Nausea and Disease Active U nivers vomiting vomiting 07-29 ity of during during 00:00: [place] [facility] No known No known Disease Unive rs active active ity of problems problems [facility] Allergies, Adverse Reactions, Alerts Allergy Allergy Status Severity Reaction(s) Onset Inactive Treating Comm ents Source Name Type Date Date Clinician Ibuprofe Propensi Active Rash 2018-11 Method i n ty to 0-12 st adverse 00:00: Hospita reaction 00 l s to drug Ketorola Propensi Active Rash 2018-11 Method i c ty to 0-12 st adverse 00:00: Hospita reaction 00 l s to drug KETOROLA DRUG Active Hives 2018- Univers C INGREDI 3-11 ity of TROMETHA 00:00: [place] MINE 00 [facility] Ketorola Propensi Active Hives 2018- Univer s c ty to 3-11 ity of Trometha adverse 00:00: [place] mine reaction 00 [facility] s Branch ketorola DA Active U [facility] c 1-21 [place] 00:00: [address] Social History Social Habit Start Date Stop Date Quantity Comments Source ASSERTION 2021-06-21 [facility] 00:00:00 [facility] Exposure to Not sure University of SARS-CoV-2 [facility] [place] [facility] (event) Branch Tobacco use and 2021-07-29 2021-07-29 Never used Universit y of exposure 00:00:00 00:00:00 [facility] Alcohol intake 2021-07-29 2021-07-29 Ex-drinker University 00:00:00 00:00:00 (finding) [facility] Sex Assigned At [birth year] Universit y of 00:00:00 00:00:00 [facility] Smoking Status Start Date Stop Date Source Unknown if ever smoked [facility] y [facility] Never smoker [facility] Medications Ordered Filled Start Stop Current Ordering Indication Dosage Frequency Signature Comments Components Source Medication Medication Date Date Medication? Clinician (SIG) Name Name proMETHazin Yes [id number] 25mg Take 1 Univers e 25 mg 9-08 tablet by ity of tablet 00:00: mouth [place] 00 every 6 Medical (six) Branch hours as needed for Nausea and Vomiting (N/V). PNV 67-iron 2020-0 Yes [id number] 1{each} Take 1 Univers ps-folate 9-08 Each by ity of no.1-dha 00:00: mouth [place] (VITAFOL 00 daily. Medical ULTRA) 29 Branch mg iron- 1 mg-200 mg Cap proMETHazin 0 Yes [id number] 25mg Take 1 Univers e 25 mg 9-08 tablet by ity of tablet 00:00: mouth [place] 00 every 6 Medical (six) Branch hours as needed for Nausea and Vomiting (N/V). PNV 67-iron 0 Yes [id number] 1{each} Take 1 Univers ps-folate 9-08 Each by ity of no.1-dha 00:00: mouth [place] (VITAFOL 00 daily. Medical ULTRA) 29 Branch mg iron- 1 mg-200 mg Cap proMETHazin 2020-0 Yes [id number] 25mg Take 1 Univers e 25 mg 9-08 tablet by ity of tablet 00:00: mouth [place] 00 every 6 Medical (six) Branch hours as needed for Nausea and Vomiting (N/V). PNV 67-iron 2020-0 Yes [id number] 1{each} Take 1 Univers ps-folate 9-08 Each by ity of no.1-dha 00:00: mouth [place] (VITAFOL 00 daily. Medical ULTRA) 29 Branch mg iron- 1 mg-200 mg Cap proMETHazin 2020-0 Yes [id number] 25mg Take 1 Univers e 25 mg 9-08 tablet by ity of tablet 00:00: mouth [place] 00 every 6 Medical (six) Branch hours as needed for Nausea and Vomiting (N/V). PNV 67-iron 2020-0 Yes [id number] 1{each} Take 1 Univers ps-folate 9-08 Each by ity of no.1-dha 00:00: mouth [place] (VITAFOL 00 daily. Medical ULTRA) 29 Branch mg iron- 1 mg-200 mg Cap proMETHazin 0 Yes [id number] 25mg Take 1 Univers e 25 mg 9-08 tablet by ity of tablet 00:00: mouth [place] 00 every 6 Medical (six) Branch hours as needed for Nausea and Vomiting (N/V). PNV 67-iron 2020-0 Yes [id number] 1{each} Take 1 Univers ps-folate 9-08 Each by ity of no.1-dha 00:00: mouth [place] (VITAFOL 00 daily. Medical ULTRA) 29 Branch mg iron- 1 mg-200 mg Cap proMETHazin 0 Yes [id number] 25mg Take 1 Univers e 25 mg 9-08 tablet by ity of tablet 00:00: mouth [place] 00 every 6 Medical (six) Branch hours as needed for Nausea and Vomiting (N/V). PNV 67-iron 2020-0 Yes [id number] 1{each} Take 1 Univers ps-folate 9-08 Each by ity of no.1-dha 00:00: mouth [place] (VITAFOL 00 daily. Medical ULTRA) 29 Branch mg iron- 1 mg-200 mg Cap proMETHazin 0 Yes [id number] 25mg Take 1 Univers e 25 mg 9-08 tablet by ity of tablet 00:00: mouth [place] 00 every 6 Medical (six) Branch hours as needed for Nausea and Vomiting (N/V). PNV 67-iron 2020-0 Yes [id number] 1{each} Take 1 Univers ps-folate 9-08 Each by ity of no.1-dha 00:00: mouth [place] (VITAFOL 00 daily. Medical ULTRA) 29 Branch mg iron- 1 mg-200 mg Cap clindamycin 2019-0 Yes 300mg 300 mg, Un cindy (CLEOCIN 2-18 Oral, QID, ity o f HCL) 02:00: First dose [place] capsule 300 00 on Mon Medica l mg 01/07/20 at Branch 1999, Until Discontinu ed, ROSEMARIE
Re ason for Anti-Infec tive: Empiric Therapy for Suspected Infection< br>Empiric Therapy Site: HEENT
D uration of therapy: 7 days
Re stricted use approved by: ADC PROVIDER ibuprofen 2019-0 2020- No 600mg 600 mg, Uni vers (IBU) 01-08-18 Oral, ity of tablet 600 01:00: 00:23 ONCE, 1 [place] as mg 00 :00 dose, [facility] Medical 01/07/20 at Branch 1900, ROSEMARIE traMADol 2019-0 2020- No 50mg 50 mg, Univer s (ULTRAM) 01-08-18 Oral, ity of tablet 50 01:00: 00:24 ONCE, 1 [place] mg 00 :00 dose, [facility] Medical 01/07/20 at Branch 1900, Routine traMADol 50 2019-0 Yes [id number] 50mg Take 1 Univers mg tablet 2-17 tablet by ity o f 00:00: mouth [place] 00 every 6 Medical (six) Branch hours as needed for Pain (scale 4-6). ibuprofen 2020-0 Yes [id number] 600mg Take 1 U nivers 600 mg 2-17 tablet by ity of tablet 00:00: mouth [place] 00 every 6 Medical (six) Branch hours as needed for Pain (scale 4-6). traMADol 50 2019-0 Yes [id number] 50mg Take 1 Univers mg tablet 2-17 tablet by ity o f 00:00: mouth [place] 00 every 6 Medical (six) Branch hours as needed for Pain (scale 4-6). ibuprofen 2020-0 Yes [id number] 600mg Take 1 U nivers 600 mg 2-17 tablet by ity of tablet 00:00: mouth [place] 00 every 6 Medical (six) Branch hours as needed for Pain (scale 4-6). traMADol 50 2020-0 Yes [id number] 50mg Take 1 Univers mg tablet 2-17 tablet by ity o f 00:00: mouth [place] 00 every 6 Medical (six) Branch hours as needed for Pain (scale 4-6). ibuprofen 2020-0 Yes [id number] 600mg Take 1 U nivers 600 mg 2-17 tablet by ity of tablet 00:00: mouth [place] 00 every 6 Medical (six) Branch hours as needed for Pain (scale 4-6). traMADol 50 2020-0 Yes [id number] 50mg Take 1 Univers mg tablet 2-17 tablet by ity o f 00:00: mouth [place] 00 every 6 Medical (six) Branch hours as needed for Pain (scale 4-6). ibuprofen 2020-0 Yes [id number] 600mg Take 1 U nivers 600 mg 2-17 tablet by ity of tablet 00:00: mouth [place] 00 every 6 Medical (six) Branch hours as needed for Pain (scale 4-6). traMADol 50 2019-2020- No [id number] 50mg Take 1 Univers mg tablet 2-17 09-08 tablet by ity of 00:00: 00:00 mouth [place] 00 :00 every 6 Medical (six) Branch hours as needed for Pain (scale 4-6). ibuprofen 2020- No [id number] 600mg Take 1 Univers 600 mg 2-17 09-08 tablet by ity of tablet 00:00: 00:00 mouth [place] 00 :00 every 6 Medical (six) Branch hours as needed for Pain (scale 4-6). clindamycin 2019- No [id number] 300mg Take 2 Univers 150 mg 2-17 -28 capsules ity of capsule 00:00: 05:59 by mouth 4 [place] as 00 :00 (four) Medical times Branch daily for 10 days. acetaminoph Yes [id number] 1{tbl} Take 1 Univers en-codeine 3-11 tablet by ity of 300-30 mg 00:00: mouth [place] tablet 00 every 6 Medical (six) Branch hours as needed for Pain (scale 7-10). acetaminoph Yes [id number] 1{tbl} Take 1 Univers en-codeine 3-11 tablet by ity of 300-30 mg 00:00: mouth [place] tablet 00 every 6 Medical (six) Branch hours as needed for Pain (scale 7-10). acetaminoph Yes [id number] 1{tbl} Take 1 Univers en-codeine 3-11 tablet by ity of 300-30 mg 00:00: mouth [place] tablet 00 every 6 Medical (six) Branch hours as needed for Pain (scale 7-10). acetaminoph Yes [id number] 1{tbl} Take 1 Univers en-codeine 3-11 tablet by ity of 300-30 mg 00:00: mouth [place] tablet 00 every 6 Medical (six) Branch hours as needed for Pain (scale 7-10). acetaminoph Yes [id number] 1{tbl} Take 1 Univers en-codeine 3-11 tablet by ity of 300-30 mg 00:00: mouth [place] tablet 00 every 6 Medical (six) Branch hours as needed for Pain (scale 7-10). acetaminoph 2020- No [id number] 1{tbl} Take 1 Univers en-codeine 3-11 09-08 tablet by ity of 300-30 mg 00:00: 00:00 mouth [place] tablet 00 :00 every 6 Medical (six) Branch hours as [...] as needed for Pain (scale 4-6). acetaminoph 2017-11- No 1{tbl} Take 1 U nivers en-codeine 0-15 09-08 tablet by ity of 300-30 mg 00:00: 00:00 mouth [place] tablet 00 :00 every 4 Medical (four) Branch hours as needed for Pain (scale 4-6). cyclobenzap 2017-11 No 10mg Take 1 Uni vers rine 10 mg 0-15 -08 tablet by ity of tablet 00:00: 00:00 mouth 3 [place] 00 :00 (three) Medical times Branch daily. No known No [facility]i medications [facility] Vital Signs Vital Name Observation Time Observation Value Comments Source Systolic blood 2021-07-29 18:50:00 110 mm[facility]Hg[facility] Diastolic blood 2021-07-29 18:50:00 71 mm[Hg] Unive [facility] Heart rate 2021-07-29 18:50:00 71 /min General acute hospital Body temperature 2021-07-29 18:50:00 36.94 Екатерина [facility] Respiratory rate 2021-07-29 18:50:00 16 /min [facility] Body height 2021-07-29 18:50:00 157.5 cm General acute hospital Body weight 2021-07-29 18:50:00 48.705 kg General acute hospital BMI 2021-07-29 18:50:00 19.64 kg/m2 General acute hospital Systolic blood 2020-01-07 22:50:00 116 mm[Hg] [facility] Diastolic blood 2020-01-07 22:50:00 76 mm[Hg] Unive rsity of pressure [place] [facility] Heart rate 2020-01-07 22:50:00 63 /min [facility] [place] [facility] Body temperature 2020-01-07 22:50:00 37.22 Екатерина [facility] [place] [facility] Respiratory rate 2020-01-07 22:50:00 16 /min [facility] [place] [facility] Body height 2020-01-07 22:50:00 157.5 cm [facility] [place] [facility] Body weight 2020-01-07 22:50:00 58.968 kg [facility] [place] [facility] BMI 2020-01-07 22:50:00 23.78 kg/m2 [facility] [place] [facility] Oxygen saturation in 2020-01-07 22:50:00 98 /min University of Arterial blood by [facility] Pulse oximetry Branch Systolic blood 2020-01-07 22:50:00 116 mm[Hg] Univer sity of pressure [place] [facility] Diastolic blood 2020-01-07 22:50:00 76 mm[Hg] Unive rsity of pressure [place] [facility] Heart rate 2020-01-07 22:50:00 63 /min [facility]i [facility] [place] [facility] Body temperature 2020-01-07 22:50:00 37.22 Екатерина [facility] [place] [facility] Respiratory rate 2020-01-07 22:50:00 16 /min [facility] [place] [facility] Body height 2020-01-07 22:50:00 157.5 cm [facility] [place] [facility] Body weight 2020-01-07 22:50:00 58.968 kg [facility] [place] [facility] BMI 2020-01-07 22:50:00 23.78 kg/m2 [facility] [place] [facility] Oxygen saturation in 2020-01-07 22:50:00 98 /min University of Arterial blood by [facility] Pulse oximetry Branch Procedures Procedure Date / Time Performed Performing Clinician Sour e EXTERNAL PROVIDER 2021-08-14 05:01:00 Doctor Unassigned, No [facility] [place] RECORDS Name Medical Branch POCT URINALYSIS W/O 2021-07-29 18:35:00 Agustina Lentz [facility] [place] SPECIFIC GRAVITY Medical [place] POCT TEST 2021-07-29 18:34:00 Agustina Lentz [facility] ASSIGNMENT OF BENEFITS 2021-07-29 18:09:13 Doctor Unassigned, No [facility] CONSENT/REFUSAL FOR 2020-01-07 22:20:52 Doctor Unassigned, No [facility] DIAGNOSIS AND [facility] TREATMENT Plan of Care Planned Activity Planned Date Details Comments Source Future Scheduled Test Hepatitis C screening [facility] (procedure) [code = 803155760] Future Scheduled Test Screening for [facility] malignant neoplasm of cervix (procedure) [code = 400804077] Future Scheduled Test INFLUENZA VACCINE [facility] [code = INFLUENZA VACCINE] Future Scheduled Test COVID-19 VACCINE (1) [facility] [code = COVID-19 VACCINE (1)] Encounters Start End Encounter Admission Attending Care Care Encounter Source Date/Time Date/Time Type Type Clinicians Facility Department ID 2021-09-07 2021-09-07 Outpatient R [facility] [id number] Univers 13:00:00 13:00:[id number] [facility] 2021-09-07 2021-09-07 Outpatient P [facility] [id number] Univers 13:00:00 13:00:00 ity of [facility] 2021-08-26 2021-08-26 Outpatient R AKINSIPE, [facility] [id number] Univers 11:00:00 11:00:00 AGUSTINA [id number] ity o f [facility] 2021-08-26 2021-08-26 Outpatient R AKINSIPE, [facility] [id number] Univers 11:00:00 11:00:00 AGUSTINA greeny o f [facility] 2021-08-14 2021-08-14 Orders Doctor YADI 1.2.840.114 [id number] Univers 00:00:00 00:00:00 Only Unassigned, KRISTI [id number] ity of [place] [facility] [id number] [place] as [phone] [address] 2021-08-03 2021-08-03 [facility] [id number] Univers 00:00:00 00:00:00 Agustina Pate HOUSEPERSON [id number] ity of [facility] [id number] [place] as MATERNAL [phone] [facility] & CHILD [address] [place] [address] 2021-07-31 2021-07-31 Telephone [facility] 1.2.840.114 [id number] Univers 00:00:00 00:00:00 Agustina Pate HOUSEPERSON [id number] ity of [facility] 4.7.2.686 [place] as MATERNAL [phone] [facility] & CHILD [address] [place] [address] 2021-07-29 2021-07-29 Initial [facility] [id number] Univers 13:22:13 14:49:17 Agustina Pate HOUSEPERSON [id number] ity of Visit [facility] [id number] [place] as MATERNAL [phone] [facility] & [address] 2021-07-29 2021-07-29 Outpatient R [facility] [id number] Univers 13:00:00 13:00:00 [id number] ity of [facility] 2021-07-29 2021-07-29 Outpatient R [facility] [id number] Univers 13:00:00 13:00:00 AGUSTINA benitez f [facility] 2021-07-29 2021-07-29 Orders Doctor GRULLON 1.2.840.114 [id number] Univers 00:00:00 00:00:00 Only Unassigned, KRISTI [id number] ity of [place] [address]686 [place] as [phone] [facility] 009 [place] 2021-07-23 2021-07-23 YADI Andrade 1.2.840.114 [id number] Univers 00:00:00 00:00:00 Triage Vani BERRY [id number] i ty of [facility] 42.7.2.686 [place] as [phone] [facility] 019 [place] 2021-07-23 2021-07-23 Nurse YADI Higginbotham 1.2.840.114 [id number] Univers 00:00:00 00:00:00 Triage Danelle T KRISTI [id number] it y of [facility] 4.2.7.2.686 [place] as [id number] [facility] 019 Branch 2020-07-14 2020-07-14 Outpatient G_Pappas [facility] [id number] [place] 11:23:00 11:23:00 [id number] Medical Group 2020-07-14 2020-07-14 Outpatient G_Pappas [facility] [id number] [place] 11:23:00 11:23:00 0901 Medical Group 2020-01-07 2020-01-07 Emergency Elio Patel [facility] 1.2.840.114 [id number] 18:19:31 18:38:00 Tia Peters 350.1.13.10 [place] 4.2.7.2.686 [place] [phone] [id number] 2020-01-07 2020-01-07 Emergency Elio Patel [facility] 1.2.840.114 [id number] Univers 18:19:31 18:38:00 Tia Peters 350.1.13.10 i ty of [place] 4.2.7.2.686 [place] [phone] [facility] 084 Branch 2020-01-07 2020-01-07 Orders Doctor YADI 1.2.840.114 [id number] 00:00:00 00:00:00 Only Unassigned, KRISTI 350.1.13.10 [place] [facility] 4.2.7.2.686 [id number] 2020-01-07 2020-01-07 Orders Doctor YADI 1.2.840.114 [id number] Univers 00:00:00 00:00:00 Only Unassigned, KRISTI 350.1.13.10 ity of [place] [facility] 4.2.7.2.686 [place] as [phone] [facility] 009 [place] Results Test Description Test Time Test Comments Results Result Comments Source POCT TEST 2021-07-29 18:35:00 Test Item Value Reference Range Interpretation Comme nts POCT PREG (test code = 1605) Positive On board controls acceptable with C Line (test code = 3574) Yes POCT PREG LOT # (test code = 3575) POCT PREG TEST DATE (test code = 3576) [facility] SPECIFIC [id number] 18:35:00 Test Item Value Reference Range Interpretation Comments POCT PH U (test code = 3254) 5 mg/dl 5-8 POCT U LEUK EST (test code = Neg Negative - Negative 3263) POCT U NIT (test code = 3262) Neg Negative - Negative POCT U PROT (test code = 3259) Trace Negative - Negative POCT U GLU (test code = 3256) Neg Negative - Negative POCT U KETONE (test code = 3258) None Negative - Negative POCT U BLD (test code = 3257) Trace Negative - Negative [facility]
[2022-02-23] MEDS ORDERED: BUTORPHANOL 1 MG/ML INJ IV PRN (15:57)
[2022-02-23] MEDS ORDERED: MEPERIDINE HCL 25 MG/ML SYR IV PRN (15:57)
[2022-02-23] MEDS ORDERED: Ringers Lactate 1,000 ML IV PRN ×2 (15:57)
[2022-02-23] MEDS ORDERED: METHYLERGONOVINE 0.2MG/ML AMP IM PRN (15:57)
[2022-02-23] MEDS ORDERED: PROMETHAZINE INJ 25 MG/ML AMP IV PRN (15:57)
[2022-02-23] MEDS ORDERED: CARBOPROST TROME 250 MCG/ML IM PRN (15:57)
[2022-02-23] MEDS ORDERED: Ringers Lactate 1,000 ML IV SCH (16:00)
[2022-02-23 16:57] LABS: Urine Appearance Cloudy (Clear); Urine Bilirubin Negative (Negative); Urine Blood 1+ (Negative); Urine Color Yellow (Yellow); Urine Glucose Negative (Negative); Urine Protein 1+ (Negative); Urine Specific Gravity >=1.030 (1.005-1.030); Urine Urobilinogen 0.2 mg/dL (0.2-1.0); Urine pH 6.5 (5.0-7.0)
[2022-02-23 16:58] LABS: Absolute Lymphocytes (CBC) 1.9 K/uL (0.7-4.9); Hematocrit 30.4 % (36.0-45.0); Lymphocytes % 15.5 % (15.3-44.8); MPV 8.4 fL (7.6-11.3); RBC Red Blood Cell Count 3.49 M/uL (3.86-4.86)
[2022-02-23 17:15] LABS: Urine Microscopic Reflex ORDER UMIC
[2022-02-23 17:17] LABS: Urine Bacteria <20 /HPF (<20); Urine Mucus 2+ /HPF (NONE SEEN); Urine RBC <5 /HPF (NONE SEEN)
[2022-02-23 17:46] VITALS: BMI 28.9
--- NOTE | 2022-02-23 20:03 | PREOPHP ---
Date of Admission: 02/23/2022 History Of Present Illness: Samira Boston is a 26-year-old, 2, para 0, one first trimester , spontaneous , at 37 weeks 2 days, came to my office and noted to be in early labor, 3 cm, v ertex, still fairly high, cervix posterior. Was told to come to the hospital instead she went home, came to hospital about 2 hours later. She is rayne regularly. She is about 3 to 3.5. The bab y is still very high. Cervix is still posterior. She will be admitted for stabilization and deliver y. Family History: Noncontributory. Past Medical History: The patient had cervical biopsy that led to a LEEP procedure in 2019. Allergies: SHE HAS NO ALLERGIES. Medications: vitamins prior to admission. Social History: Does not smoke. Physical Examination: HEENT: Clear. Pupils equal, round, reactive to light and accommodation. Conjunctivae well perfused . No oral, lingual, or buccal lesions. Chest and Lungs: Clear. Heart: Without murmurs, thrills, heaves, or rubs. Breasts: Without masses. Abdomen: Term size. Extremities: Clear without edema, cyanosis, or clubbing. Pelvic: As stated. Assessment And Plan: The patient is rayne regularly. If she makes no progress in the next sev eral hours, then we will start her on Pitocin. She is strep negative, Rh positive, immune to Rubella . Full labor talk given. Anticipate delivery sometime this evening or tomorrow. KARL/YU Voice ID: [id number]
[2022-02-23] MEDS: Ringers Lactate 1,000 ML IV SCH (20:19)
[2022-02-24 00:27] LABS: RPR (Rapid Plasma Reagin) NON-REACT (NON-REACT)
[2022-02-24] MEDS ORDERED: OXYTOCIN/LR 20 UNIT/1,000 ML BAG IV SCH ×2 (01:21→08:00)
[2022-02-24] MEDS: Ringers Lactate 1,000 ML IV SCH ×2 (02:30→06:29)
[2022-02-24] MEDS ORDERED: ROPIVACAINE HCL 0.2% 20ML AMP IV ONE (02:44)
[2022-02-24] MEDS ORDERED: FENTANYL CITR 100 MCG/2 ML IV ONE (02:44)
[2022-02-24] MEDS ORDERED: 0.2% ROPIVACAINE (200 MG/100 ML) BAG EP ONE (02:45)
[2022-02-24] MEDS ORDERED: METHYLERGONOVINE 0.2MG/ML AMP IM ONE ×2 (04:58→07:09)
[2022-02-24] MEDS ORDERED: CARBOPROST TROME 250 MCG/ML IM ONE ×2 (04:59→07:09)
[2022-02-24] MEDS ORDERED: LIDOCAINE 1% MPF 30 ML VIAL ONE (07:09)
[2022-02-24] MEDS ORDERED: Oxycodone HCl/Acetaminophen 1 TAB TAB PO PRN (07:43)
[2022-02-24] MEDS ORDERED: DOCUSATE NA/SENNA CONC 1 TAB PO PRN (07:43)
[2022-02-24] MEDS ORDERED: ACETAMINOPHEN 500 MG TAB PO PRN (07:43)
[2022-02-24] MEDS ORDERED: DIPHENHYDRAMINE 25 MG TAB/CAP PO PRN (07:43)
[2022-02-24] MEDS ORDERED: BISACODYL 10 MG RECTAL SUPP RC PRN (07:43)
[2022-02-24] MEDS ORDERED: Ringers Lactate 2,000 ML IV ONE (08:21)
[2022-02-24] MEDS: IBUPROFEN 600 MG TAB PO PRN ×2 (09:51→17:07)
--- NOTE | 2022-02-24 10:18 | DS ---
Hospital Course: A 26-year-old, 2, para 0, first trimester miscarriage. The patient came in yesterday afternoon at 37 weeks and 2 days, in early labor, 3 cm, 50% effaced, vertex, -2 station at that point. During the night, she progressed and was given epidural anesthesia, went to complete ra pidly, rupture of membranes at approximately 9 cm, clear fluid. Second stage of about 10-12 minutes. Spontaneous vaginal delivery of an estimated 6-pound plus male , Apgars 9 and 10, very small first-degree laceration on the left side of the introitus, 2-0 chromic 4 stitches running locked. Du ncan delivery of the placenta, which was inspected and noted to be intact and normal. Less than 150 cc blood loss at this point. The patient is Rh positive, immune to Rubella, negative strep. Tolerat ed all procedures well. Final Diagnoses: Term intrauterine at 37 weeks and 3 days at the time of delivery, vaginal delivery, epidural anesthesia. KARL/YU Voice ID: [id number] Report ID: [id number]
--- NOTE | 2022-02-24 10:33 | PN ---
The patient has progressed well during the night. She has an epidural and she is reasonably comforta ble, although is feeling an urge to push. She is now on 9 to 9+ cm, rupture of membranes, clear flui d. Scalp electrode placed. She is on 10 milliunits of Pitocin, we will increase at 12. She is on 8 , maintenance dose on the epidural, but really cannot push affectively as necessary, so we will move it to 6. Anticipate delivery relatively soon. KARL/YU Voice ID: [id number] Report ID: [id number]
[2022-02-24] MEDS: Oxycodone HCl/Acetaminophen 1 TAB TAB PO PRN ×2 (12:47→20:49)
[2022-02-25] MEDS: IBUPROFEN 600 MG TAB PO PRN (03:43)
[2022-02-25 09:47] VITALS: BP 116/61; TEMP 98.3
[2022-02-25] MEDS: Oxycodone HCl/Acetaminophen 1 TAB TAB PO PRN (11:56)
--- NOTE | 2022-02-26 05:48 | DS ---
Date of Discharge: 02/25/2022 Hospital Course: 26-year-old 2, para 0, 37 weeks 3 days time of delivery, went into early la bor, subsequently was delivered of a 6-pound 2-ounce male infant, short second stage of less than 20 minutes. Apgars 9 and 9. Small first-degree laceration, repaired with 2-0 chromic on the left side of the introitus. Epidural anesthesia less than 150 cc blood loss with Schultze delivery of the plac enta was inspected and noted to be intact and normal. Rh positive, immune to rubella, negative strep , negative COVID as far as we know. , afebrile, ambulating, voiding. Lochia is normal. N o post epidural problems. Requests no analgesics. Will be dismissed to return to my office in 4-6 w eeks for followup, to report any temperature elevation of 100 degrees or greater, severe pain, heavy bleeding, or any other type of abnormalities. Final Diagnoses: Intrauterine gestation, 37 weeks 2 days, spontaneous labor, 37 weeks 3 days vaginal delivery, epidural anesthesia. Tdap has been administered. KARL/YU Voice ID: [id number] Report ID: [id number]
== END 2022-02-25 13:40 | disposition home or self-care (01) | DRG 807 ==
LOC: 2ND-WC 15:49
PROVIDERS: ADMIT Specialist; ATTEND Specialist
PROC: 10907ZC Drainage of Amniotic Fluid, Therapeutic from Products of Conception, Via Natural or Artificial Opening (ICD-10-PCS; principal; 2022-02-23)
PROC: 10E0XZZ Delivery of Products of Conception, External Approach (ICD-10-PCS; 2022-02-23)
PROC: 0HQ9XZZ Repair Perineum Skin, External Approach (ICD-10-PCS; 2022-02-23)
DX: O71.89 Other specified obstetric trauma (principal); Z37.0 Single live birth; Z3A.37 37 weeks gestation of pregnancy; Z20.822 Contact with and (suspected) exposure to COVID-19
CPT/HCPCS: 36415; 81003; 81015; 85025; 86592; 87086; 87088; 87340; J0595; J2210; J2550; J2590; J2795; J3010; J7120; U0003